=== PATIENT | male | born 1975 | race Caucasian/White ===

== ENCOUNTER 2016-05-10 11:26 | Inpatient (IN) | payer OTHER ==
[2016-05-10 12:02] VITALS: BMI 34.6
--- NOTE | 2016-05-10 12:53 | HP ---
CIWA Score - CIWA Score Nausea/Vomitin-Mild Nausea/No Vomiting Muscle Tremors: 4-Moderate,w/Arms Extend Anxiety: 4-Mod. Anxious/Guarded Agitation: 4-Moderately Restless Paroxysmal Sweats: 3 Orientation: 0-Oriented Tacttile Disturbances: 0-None Auditory Disturbances: 0-None Visual Disturbances: 0-None Headache: 1-Very Mild CIWA-Ar Total Score: 17 Admission ROS BHS - HPI Chief Complaint: I want to be cleaned and stay sober. Allergies/Adverse Reactions: Allergies Allergy/AdvReac Type Severity Reaction Status Date / Time No Known Allergies Allergy Verified 05/10/16 12:45 History of Present Illness: pt is a 40yr old male with a history of alcohol dependence seeking detox for treatment. pt is also prescribed suboxone and has been weaned and no longer wants to take it. pt was advised he will not be getting suboxone and pt in agreement." I dont want it" Exam Limitations: No Limitations - Ebola screening Have you traveled outside of the country in the last 21 days: No Have you had contact with anyone from an Ebola affected area: No Have you been sick,other than usual withdrawal symptoms: No - Review of Systems Constitutional: Diaphoresis, Night Sweats EENT: reports: No Symptoms Reported, Nose Congestion Respiratory: reports: No Symptoms reported Cardiac: reports: No Symptoms Reported GI: reports: Poor Appetite, Poor Fluid Intake : reports: No Symptoms Reported Integumentary: reports: No Symptoms Reported, Dryness, Flushing Neuro: reports: Headache, Tremors Endocrine: reports: Excessive Sweating, Flushing, Intolerance to Cold, Intolerance to Heat Hematology: reports: No Symptoms Reported Psychiatric: reports: Judgement Intact, Mood/Affect Appropiate, Orientated x3, Agitated, Anxious Other Systems: Reviewed and Negative Patient History - Patient Medical History Hx Anemia: No Hx Asthma: No Hx Chronic Obstructive Pulmonary Disease (COPD): No Hx Cancer: No Hx Cardiac Disorders: No Hx Congestive Heart Failure: No Hx Hypertension: Yes (labatolol 200mg bid) Hx Hypercholesterolemia: No Hx Pacemaker: No HX Cerebrovascular Accident: No Hx Seizures: No Hx Dementia: No Hx Diabetes: No Hx Gastrointestinal Disorders: No Hx Liver Disease: No Hx Genitourinary Disorders: No Hx Sexually Transmitted Disorders: No Hx Renal Disease (ESRD): No Hx Thyroid Disease: No Hx Human Immunodeficiency Virus (HIV): No Hx Hepatitis C: No Hx Depression: No Hx Suicide Attempt: No (denies) Hx Bipolar Disorder: No Hx Schizophrenia: No Other Medical History: anxiety - Patient Surgical History Past Surgical History: No - PPD History Previous Implant?: Yes Documented Results: Negative w/o proof Implanted On Prior [facility] Admission?: No PPD to be Administered?: Yes - Reproductive History Patient is a Female of Child Bearing Age (11 -55 yrs old): No - Smoking Cessation Smoking history: Former smoker Have you smoked in the past 12 months: No Hx Chewing Tobacco Use: No Initiated information on smoking cessation: Yes 'Breaking Loose' booklet given: 05/10/16 (on E-cig) - Substance & Tx. History Hx Alcohol Use: Yes Hx Substance Use: Yes Substance Use Type: Alcohol, Tranquilizers Hx Substance Use Treatment: No - Substances Abused Alprazolam (Xanax) Route: Oral Frequency: Daily Amount used: 4MG Age of first use: 34 Date of Last Use: 05/10/16 Alcohol Route: Oral Frequency: Daily Amount used: 5 BOTTLES OF [place] Age of first use: 13 Date of Last Use: 05/10/16 Family Disease History - Family Disease History Family Disease History: Other: Brother () Admission Physical Exam S - Vital Signs Vital Signs: Vital Signs - 24 hr 05/10/16 11:57 Temperature 97.7 F Pulse Rate 85 Respiratory 18 Rate Blood Pressure 119/90 - Physical General Appearance: Yes: Appropriately Dressed, Moderate Distress, Obese, Tremorous, Irritable, Sweating, Anxious HEENTM: Yes: Normal Voice, Nasal Congestion, Rhinorrhea Respiratory: Yes: Lungs Clear, Normal Breath Sounds, No Respiratory Distress Neck: Yes: No masses,lesions,Nodules Breast: Yes: Within Normal Limits Cardiology: Yes: Regular Rhythm, Regular Rate, S1, S2 Abdominal: Yes: Normal Bowel Sounds, Non Tender, Soft Genitourinary: Yes: Within Normal Limits Back: Yes: Normal Inspection Musculoskeletal: Yes: full range of Motion Extremities: Yes: Normal Capillary Refill, Normal Inspection, Non-Tender, Tremors Neurological: Yes: Fully Oriented, Alert, Normal Response Integumentary: Yes: Normal Color, Diaphoresis Lymphatic: Yes: Within Normal Limits - Diagnostic (1) Alcohol dependence with uncomplicated withdrawal Current Visit: Yes Status: Chronic (2) Nicotine dependence Current Visit: Yes Status: Chronic Qualifiers: Nicotine product type: cigarettes (3) Hypertension Current Visit: Yes Status: Chronic Qualifiers: Hypertension type: essential hypertension Qualified Code(s): I10 - Essential (primary) hypertension (4) Electronic cigarette use Current Visit: Yes Status: Chronic Cleared for Admission [facility] - Detox or Rehab [facility] Level of Care: Medically Managed Detox Regimen/Protocol: Librium S Breath Alcohol Content Breath Alcohol Content: 0.093 Urine Drug Screen - Results Drug Screen Negative: No Urine Drug Screen Results: BZO-Benzodiazepines, OXY-Oxycodone
[2016-05-10] MEDS ORDERED: LOPERAMIDE HCL 2 MG CAPSULE PO PRN (13:01)
[2016-05-10] MEDS ORDERED: IBUPROFEN 400 MG TABLET (FP) PO PRN (13:01)
[2016-05-10] MEDS ORDERED: guaiFENesin/D-METHORPHAN HB 10 ML UNIT-DOSE CUPS PO PRN (13:01)
[2016-05-10] MEDS ORDERED: NICOTINE POLACRILEX 4 MG GUM BUC PRN (13:01)
[2016-05-10] MEDS ORDERED: P-EPHED 60MG/TRIPROLIDI 2.5MG TABLET PO PRN (13:01)
[2016-05-10] MEDS ORDERED: chlordiazePOXIDE HCL 25 MG CAPSULE PO PRN (13:01)
[2016-05-10] MEDS ORDERED: MAG HYDROX/AL HYDROX/SIMETH 30 ML UNIT-DOSE CUP PO PRN (13:01)
[2016-05-10] MEDS ORDERED: hydrOXYzine PAMOATE 50 MG CAPSULE (FP) PO PRN (13:01)
[2016-05-10] MEDS ORDERED: MAGNESIUM CITRATE 300 ML BOTTLE PO PRN (13:01)
[2016-05-10] MEDS ORDERED: MAGNESIUM HYDROX 2400MG/30ML ORAL SUSPENSION 30 ML CUP PO PRN (13:01)
[2016-05-10] MEDS ORDERED: MENTHOL/PHENOL 1 EACH UD MM PRN (13:01)
[2016-05-10] MEDS ORDERED: chlordiazePOXIDE HCL 25 MG CAPSULE PO ONE (14:00)
[2016-05-10] MEDS: chlordiazePOXIDE HCL 25 MG CAPSULE PO SCH ×2 (17:15→22:15)
[2016-05-10 20:16] LABS: URINE APPEARANCE CLEAR; URINE BILIRUBIN NEGATIVE (NEGATIVE); URINE BLOOD NEGATIVE (NEGATIVE); URINE COLOR YELLOW; URINE GLUCOSE (UA) NEGATIVE (NEGATIVE); URINE KETONE NEGATIVE (NEGATIVE); URINE LEUK ESTERASE NEGATIVE (NEGATIVE); URINE NITRITE NEGATIVE (NEGATIVE); URINE PROTEIN NEGATIVE (NEGATIVE); URINE UROBILINOGEN NEGATIVE E.U./dl (0.2-1.0)
[2016-05-10] MEDS: THIAMINE HCL 100 MG TABLET (FP) PO SCH (22:14)
[2016-05-10] MEDS: LABETALOL HCL 100 MG TABLET (FP) PO SCH (22:14)
--- NOTE | 2016-05-10 23:33 | EKG ---
Test Reason : Blood Pressure : / mmHG Vent. Rate : 069 BPM Atrial Rate : 069 BPM P-R Int : 186 ms QRS Dur : 086 ms QT Int : 418 ms P-R-T Axes : 035 070 034 degrees QTc Int : 447 ms NORMAL SINUS RHYTHM T WAVE ABNORMALITY, CONSIDER ANTERIOR ISCHEMIA ABNORMAL ECG NO PREVIOUS ECGS AVAILABLE Confirmed by VANDANA BUCKLEY, VERA ([id number]) on 05/10/2016 11:33:23 PM Referred By: Confirmed By:VERA ROSS MD
[2016-05-11] MEDS: chlordiazePOXIDE HCL 25 MG CAPSULE PO SCH ×4 (05:34→22:14)
[2016-05-11] MEDS: ACETAMINOPHEN 325 MG TABLET (FP) PO PRN ×2 (05:35→17:34)
[2016-05-11 10:08] LABS: MCH 34.6 pg (25.7-33.7); MCHC 34.7 g/dl (32.0-35.9); MEAN CELL VOLUME 99.6 fl (80-96); MEAN PLT VOLUME 8.1 fl (7.5-11.1); PLATELET COUNT 153 K/MM3 (134-434); RDW 13.8 % (11.9-15.9); WHITE BLOOD COUNT 5.6 K/mm3 (4.0-10.0)
[2016-05-11] MEDS: LABETALOL HCL 100 MG TABLET (FP) PO SCH ×2 (10:23→22:13)
[2016-05-11] MEDS: PRENATAL VITAMINS W/ FOLIC ACID TABLET (FP) PO SCH (10:23)
[2016-05-11 10:41] LABS: ALK PHOS 80 U/L (45-117); ANION GAP 14 (8-16); BILIRUBIN,TOTAL 0.5 mg/dL (0.2-1.0); CALCIUM 8.8 mg/dL (8.5-10.1); CO2 25 mmol/L (21-32); CREATININE 0.8 mg/dL (0.7-1.3); GLUCOSE,RANDOM 81 mg/dL (74-106); SGOT/AST 60 U/L (15-37); SGPT/ALT 72 U/L (12-78); TOT PROT 7.5 g/dl (6.4-8.2)
--- NOTE | 2016-05-11 11:13 | CONSULT ---
[facility] Psychiatric Consult - Data Date of interview: 05/11/16 Admission source: [facility] Identifying data: First admission to [facility] for this 40 y/o male seeking detox treatment on for alcohol and benzodiazepine (xanax) dependence.Patient is single without children,domiciled,unemployed and reportedly deprived of any source of income. Substance Abuse History: - Smoking Cessation. Smoking history: Former smoker. Have you smoked in the past 12 months: No. Hx Chewing Tobacco Use: No. Initiated information on smoking cessation: Yes. 'Breaking Loose' booklet given : 05/10/16 (on E-cig). - Substance & Tx. History. Hx Alcohol Use: Yes. Hx Substance Use: Yes. Substance Use Type: Alcohol, Tranquilizers. Hx Substance Use Treatment: No. - Substances Abused. Alprazolam (Xanax). Route: Oral. Frequency: Daily. Amount used: 4MG. Age of first use: 34. Date of Last Use: 05/10/16. Alcohol. Route: Oral. Frequency: Daily. Amount used: 5 BOTTLES OF [place]. Age of first use: 13. Date of Last Use: 05/10/16. Patient confirms this pattern of substance use in this interview. Medical History: Hypertension. Psychiatric History: Patient denies. Physical/Sexual Abuse/Trauma History: Patient denies. Additional Comment: Urine Drug Screen Results: BZO-Benzodiazepines, OXY- Oxycodone.Noted. Mental Status Exam - Mental Status Exam Alert and Oriented to: Time, Place, Person Cognitive Function: Good Patient Appearance: Well Groomed Mood: Nervous, Apprehensive, Hopeful Affect: Mood Congruent Patient Behavior: Fatigued, Appropriate, Cooperative Speech Pattern: Clear Voice Loudness: Normal Thought Process: Intact, Goal Oriented Thought Disorder: Not Present Hallucinations: Denies Suicidal Ideation: Denies Homicidal Ideation: Denies Insight/Judgement: Fair Sleep: Well Appetite: Good Muscle strength/Tone: Normal Gait/Station: Normal Psychiatric Findings - Problem List ([place] 1, 2,3) (1) Alcohol dependence with uncomplicated withdrawal Current Visit: Yes Status: Acute (2) Benzodiazepine dependence Current Visit: Yes Status: Acute (3) Electronic cigarette use Current Visit: Yes Status: Chronic (4) Hypertension Current Visit: Yes Status: Chronic Qualifiers: Hypertension type: secondary to other renal disorders Qualified Code (s): I15.1 - Hypertension secondary to other renal disorders; N28.89 - Other specified disorders of kidney and ureter - Initial Treatment Plan Initial Treatment Plan: Psychoeducation.Detoxification.Observation.
[2016-05-11] MEDS ORDERED: ONDANSETRON *ODT* 4 MG TABLET SL PRN (11:25)
--- NOTE | 2016-05-11 17:45 | PN ---
[facility] CIWA - CIWA Score Nausea/Vomitin-Mild Nausea/No Vomiting Muscle Tremors: 4-Moderate,w/Arms Extend Anxiety: 4-Mod. Anxious/Guarded Agitation: 4-Moderately Restless Paroxysmal Sweats: 3 Orientation: 0-Oriented Tacttile Disturbances: 0-None Auditory Disturbances: 0-None Visual Disturbances: 0-None Headache: 0-None Present CIWA-Ar Total Score: 16 BHS Progress Note (SOAP) Subjective: anxiety,tremors,sweating,interrupted sleep,restless Objective: 05/11/16 17:44 Vital Signs - 8 hr 05/11/16 05/11/16 15:22 17:37 Temperature 96 F L 97.8 F Pulse Rate 60 60 Respiratory 18 18 Rate Blood Pressure 108/77 115/76 Laboratory Last Values WBC 5.6 K/mm3 (4.0-10.0) 05/11/16 06:00 RBC 4.26 M/mm3 (4.00-5.60) 05/11/16 06:00 Hgb 14.7 GM/dL (11.7-16.9) 05/11/16 06:00 Hct 42.5 % (35.4-49) 05/11/16 06:00 MCV 99.6 fl (80-96) H 05/11/16 06:00 MCHC 34.7 g/dl (32.0-35.9) 05/11/16 06:00 RDW 13.8 % (11.9-15.9) 05/11/16 06:00 Plt Count 153 K/MM3 (134-434) 05/11/16 06:00 MPV 8.1 fl (7.5-11.1) 05/11/16 06:00 Sodium 140 mmol/L (136-145) 05/11/16 06:00 Potassium 4.0 mmol/L (3.5-5.1) 05/11/16 06:00 Chloride 101 mmol/L (98-107) 05/11/16 06:00 Carbon Dioxide 25 mmol/L (21-32) 05/11/16 06:00 Anion Gap 14 (8-16) 05/11/16 06:00 BUN 7 mg/dL (7-18) 05/11/16 06:00 Creatinine 0.8 mg/dL (0.7-1.3) 05/11/16 06:00 Creat Clearance w eGFR > 60 (>60) 05/11/16 06:00 Random Glucose 81 mg/dL (74-106) 05/11/16 06:00 Calcium 8.8 mg/dL (8.5-10.1) 05/11/16 06:00 Total Bilirubin 0.5 mg/dL (0.2-1.0) 05/11/16 06:00 AST 60 U/L (15-37) H 05/11/16 06:00 ALT 72 U/L (12-78) 05/11/16 06:00 Alkaline Phosphatase 80 U/L (45-117) 05/11/16 06:00 Total Protein 7.5 g/dl (6.4-8.2) 05/11/16 06:00 Albumin 4.0 g/dl (3.4-5.0) 05/11/16 06:00 Urine Color Yellow 05/10/16 15:00 Urine Appearance Clear 05/10/16 15:00 Urine pH 5.0 (5.0-8.0) 05/10/16 15:00 Ur Specific [place] 1.015 (1.001-1.035) 05/10/16 15:00 Urine Protein Negative (NEGATIVE) 05/10/16 15:00 Urine Glucose (UA) Negative (NEGATIVE) 05/10/16 15:00 Urine Ketones Negative (NEGATIVE) 05/10/16 15:00 Urine Blood Negative (NEGATIVE) 05/10/16 15:00 Urine Nitrite Negative (NEGATIVE) 05/10/16 15:00 Urine Bilirubin Negative (NEGATIVE) 05/10/16 15:00 Urine Urobilinogen Negative E.U./dl (0.2-1.0) 05/10/16 15:00 Ur Leukocyte Esterase Negative (NEGATIVE) 05/10/16 15:00 RPR Titer Nonreactive (NONREACTIVE) 05/11/16 06:00 labs noted Assessment: 05/11/16 17:44 withdrawal sx Plan: continue detox
[2016-05-11] MEDS: THIAMINE HCL 100 MG TABLET (FP) PO SCH (22:13)
[2016-05-12] MEDS: diphenhydrAMINE HCL 50 MG CAPSULE PO PRN (01:09)
[2016-05-12] MEDS: chlordiazePOXIDE HCL 25 MG CAPSULE PO SCH ×2 (05:29→10:29)
[2016-05-12] MEDS ORDERED: CYCLOBENZAPRINE HCL 10 MG TABLET (FP) PO ONE (10:17)
--- NOTE | 2016-05-12 10:19 | PN ---
[facility] CIWA - CIWA Score Nausea/Vomitin-No Nausea/No Vomiting Muscle Tremors: 4-Moderate,w/Arms Extend Anxiety: 4-Mod. Anxious/Guarded Agitation: 3 Paroxysmal Sweats: 3 Orientation: 0-Oriented Tacttile Disturbances: 0-None Auditory Disturbances: 0-None Visual Disturbances: 0-None Headache: 0-None Present CIWA-Ar Total Score: 14 S Progress Note (SOAP) Subjective: ANXIETY,TREMORS,SWEATING,INTERRUPTED SLEEP,RESTLESS,MUSCLE ACHES/SPASM Objective: 05/12/16 10:18 Vital Signs - 8 hr 05/12/16 05/12/16 05/12/16 03:30 06:12 09:21 Temperature 96.4 F L 96.8 F L Pulse Rate 61 66 Respiratory 18 16 18 Rate Blood Pressure 111/72 129/86 Laboratory Last Values WBC 5.6 K/mm3 (4.0-10.0) 05/11/16 06:00 RBC 4.26 M/mm3 (4.00-5.60) 05/11/16 06:00 Hgb 14.7 GM/dL (11.7-16.9) 05/11/16 06:00 Hct 42.5 % (35.4-49) 05/11/16 06:00 MCV 99.6 fl (80-96) H 05/11/16 06:00 MCHC 34.7 g/dl (32.0-35.9) 05/11/16 06:00 RDW 13.8 % (11.9-15.9) 05/11/16 06:00 Plt Count 153 K/MM3 (134-434) 05/11/16 06:00 MPV 8.1 fl (7.5-11.1) 05/11/16 06:00 Sodium 140 mmol/L (136-145) 05/11/16 06:00 Potassium 4.0 mmol/L (3.5-5.1) 05/11/16 06:00 Chloride 101 mmol/L (98-107) 05/11/16 06:00 Carbon Dioxide 25 mmol/L (21-32) 05/11/16 06:00 Anion Gap 14 (8-16) 05/11/16 06:00 BUN 7 mg/dL (7-18) 05/11/16 06:00 Creatinine 0.8 mg/dL (0.7-1.3) 05/11/16 06:00 Creat Clearance w eGFR > 60 (>60) 05/11/16 06:00 Random Glucose 81 mg/dL (74-106) 05/11/16 06:00 Calcium 8.8 mg/dL (8.5-10.1) 05/11/16 06:00 Total Bilirubin 0.5 mg/dL (0.2-1.0) 05/11/16 06:00 AST 60 U/L (15-37) H 05/11/16 06:00 ALT 72 U/L (12-78) 05/11/16 06:00 Alkaline Phosphatase 80 U/L (45-117) 05/11/16 06:00 Total Protein 7.5 g/dl (6.4-8.2) 05/11/16 06:00 Albumin 4.0 g/dl (3.4-5.0) 05/11/16 06:00 Urine Color Yellow 05/10/16 15:00 Urine Appearance Clear 05/10/16 15:00 Urine pH 5.0 (5.0-8.0) 05/10/16 15:00 Ur Specific [place] 1.015 (1.001-1.035) 05/10/16 15:00 Urine Protein Negative (NEGATIVE) 05/10/16 15:00 Urine Glucose (UA) Negative (NEGATIVE) 05/10/16 15:00 Urine Ketones Negative (NEGATIVE) 05/10/16 15:00 Urine Blood Negative (NEGATIVE) 05/10/16 15:00 Urine Nitrite Negative (NEGATIVE) 05/10/16 15:00 Urine Bilirubin Negative (NEGATIVE) 05/10/16 15:00 Urine Urobilinogen Negative E.U./dl (0.2-1.0) 05/10/16 15:00 Ur Leukocyte Esterase Negative (NEGATIVE) 05/10/16 15:00 RPR Titer Nonreactive (NONREACTIVE) 05/11/16 06:00 LABS NOTED Assessment: 05/12/16 10:19 WITHDRAWAL SX. Plan: CONTINUE DETOX
[2016-05-12] MEDS: LABETALOL HCL 100 MG TABLET (FP) PO SCH ×2 (10:29→22:46)
[2016-05-12] MEDS: PRENATAL VITAMINS W/ FOLIC ACID TABLET (FP) PO SCH (10:29)
[2016-05-12] MEDS: cloNIDine HCL 0.1 MG TABLET PO SCH ×2 (11:18→22:46)
[2016-05-12] MEDS: CYCLOBENZAPRINE HCL 10 MG TABLET (FP) PO SCH ×2 (13:51→22:46)
[2016-05-12] MEDS: chlordiazePOXIDE 5 MG CAPSULE PO SCH ×2 (17:59→22:45)
[2016-05-12] MEDS: THIAMINE HCL 100 MG TABLET (FP) PO SCH (22:45)
[2016-05-13] MEDS: CYCLOBENZAPRINE HCL 10 MG TABLET (FP) PO SCH ×3 (05:35→22:40)
[2016-05-13] MEDS: chlordiazePOXIDE 5 MG CAPSULE PO SCH ×2 (05:35→10:34)
[2016-05-13] MEDS: LABETALOL HCL 100 MG TABLET (FP) PO SCH ×2 (10:35→22:39)
[2016-05-13] MEDS: cloNIDine HCL 0.1 MG TABLET PO SCH ×2 (10:35→22:40)
--- NOTE | 2016-05-13 11:09 | PN ---
BHS Progress Note (SOAP) Subjective: nausea, sweats, interrupted sleep, anxiety, tremors Objective: 05/13/16 11:08 Vital Signs - 8 hr 05/13/16 05/13/16 03:37 10:00 Temperature 98.4 F Pulse Rate 73 Respiratory 18 18 Rate Blood Pressure 114/82 Laboratory Tests 05/10/16 05/11/16 05/11/16 15:00 06:00 06:00 WBC 5.6 RBC 4.26 Hgb 14.7 Hct 42.5 MCV 99.6 H MCHC 34.7 RDW 13.8 Plt Count 153 MPV 8.1 Sodium 140 Potassium 4.0 Chloride 101 Carbon Dioxide 25 Anion Gap 14 BUN 7 Creatinine 0.8 Creat Clearance w eGFR > 60 Random Glucose 81 Calcium 8.8 Total Bilirubin 0.5 AST 60 H ALT 72 Alkaline Phosphatase 80 Total Protein 7.5 Albumin 4.0 Urine Color Yellow Urine Appearance Clear Urine pH 5.0 Ur Specific [place] 1.015 Urine Protein Negative Urine Glucose (UA) Negative Urine Ketones Negative Urine Blood Negative Urine Nitrite Negative Urine Bilirubin Negative Urine Urobilinogen Negative Ur Leukocyte Esterase Negative RPR Titer 05/11/16 06:00 WBC RBC Hgb Hct MCV MCHC RDW Plt Count MPV Sodium Potassium Chloride Carbon Dioxide Anion Gap BUN Creatinine Creat Clearance w eGFR Random Glucose Calcium Total Bilirubin AST ALT Alkaline Phosphatase Total Protein Albumin Urine Color Urine Appearance Urine pH Ur Specific [place] Urine Protein Urine Glucose (UA) Urine Ketones Urine Blood Urine Nitrite Urine Bilirubin Urine Urobilinogen Ur Leukocyte Esterase RPR Titer Nonreactive Assessment: 05/13/16 11:08 withdrawal sx Plan: cont detox, fluids, encourage ambulation
[2016-05-13] MEDS: PRENATAL VITAMINS W/ FOLIC ACID TABLET (FP) PO SCH (11:40)
[2016-05-13] MEDS: chlordiazePOXIDE HCL 10 MG CAPSULE PO SCH ×2 (17:18→22:39)
[2016-05-13] MEDS: THIAMINE HCL 100 MG TABLET (FP) PO SCH (22:39)
[2016-05-13] MEDS: diphenhydrAMINE HCL 50 MG CAPSULE PO PRN (22:41)
[2016-05-14] MEDS: CYCLOBENZAPRINE HCL 10 MG TABLET (FP) PO SCH (05:30)
[2016-05-14] MEDS: chlordiazePOXIDE HCL 10 MG CAPSULE PO SCH (05:30)
[2016-05-14 06:38] VITALS: BP 108/75; PULSE 88; TEMP 95.8
--- NOTE | 2016-05-14 08:27 | PN ---
BHS Progress Note (SOAP) Subjective: no complaints Objective: 05/14/16 08:25 Vital Signs - 8 hr 05/14/16 05/14/16 05/14/16 00:30 03:30 06:37 Temperature 95.8 F L Pulse Rate 88 Respiratory 18 18 18 Rate Blood Pressure 108/75 Laboratory Tests 05/10/16 05/11/16 05/11/16 15:00 06:00 06:00 WBC 5.6 RBC 4.26 Hgb 14.7 Hct 42.5 MCV 99.6 H MCHC 34.7 RDW 13.8 Plt Count 153 MPV 8.1 Sodium 140 Potassium 4.0 Chloride 101 Carbon Dioxide 25 Anion Gap 14 BUN 7 Creatinine 0.8 Creat Clearance w eGFR > 60 Random Glucose 81 Calcium 8.8 Total Bilirubin 0.5 AST 60 H ALT 72 Alkaline Phosphatase 80 Total Protein 7.5 Albumin 4.0 Urine Color Yellow Urine Appearance Clear Urine pH 5.0 Ur Specific [place] 1.015 Urine Protein Negative Urine Glucose (UA) Negative Urine Ketones Negative Urine Blood Negative Urine Nitrite Negative Urine Bilirubin Negative Urine Urobilinogen Negative Ur Leukocyte Esterase Negative RPR Titer 05/11/16 06:00 WBC RBC Hgb Hct MCV MCHC RDW Plt Count MPV Sodium Potassium Chloride Carbon Dioxide Anion Gap BUN Creatinine Creat Clearance w eGFR Random Glucose Calcium Total Bilirubin AST ALT Alkaline Phosphatase Total Protein Albumin Urine Color Urine Appearance Urine pH Ur Specific [place] Urine Protein Urine Glucose (UA) Urine Ketones Urine Blood Urine Nitrite Urine Bilirubin Urine Urobilinogen Ur Leukocyte Esterase RPR Titer Nonreactive Assessment: 05/14/16 08:26 completed deteox, medically stable Plan: d/c today, f/u PCP for medical care
--- NOTE | 2016-05-14 08:32 | DS ---
[facility] Detox Discharge Summary Admission Date: 05/10/16 Discharge Date: 05/14/16 - History Present History: Alcohol Dependence, Sedative Dependence Pertinent Past History: nicotine dependence with withdrawal, anxiety, depression and insomnia, HTN - Physical Exam Results Vital Signs: Vital Signs Temperature 95.8 F L 05/14/16 06:37 Pulse Rate 88 05/14/16 06:37 Respiratory Rate 18 05/14/16 06:37 Blood Pressure 108/75 05/14/16 06:37 O2 Sat by Pulse Oximetry (%) Pertinent Admission Physical Exam Findings: withdrawal sx - Treatment Hospital Course: Detox Protocol Followed, Detoxed Safely, Responded well, Discharged Condition Good, Rehab Referral Accepted - Medication Discharge Medications: Ambulatory Orders Labetalol HCl [Normodyne -] 200 mg PO BID 05/10/16 - Diagnosis (1) Alcohol dependence with uncomplicated withdrawal Current Visit: Yes Status: Acute (2) Benzodiazepine dependence Current Visit: Yes Status: Acute (3) Electronic cigarette use Current Visit: Yes Status: Chronic (4) Hypertension Current Visit: Yes Status: Chronic Qualifiers: Hypertension type: secondary to other renal disorders Qualified Code (s): I15.1 - Hypertension secondary to other renal disorders; N28.89 - Other specified disorders of kidney and ureter (5) Nicotine dependence Current Visit: Yes Status: Chronic Qualifiers: Nicotine product type: cigarettes - AMA Did Patient Leave Against Medical Advice: No
== END 2016-05-14 08:55 | disposition home or self-care (01) | DRG 775 ==
LOC: YASAS 11:26 → Y3N 13:44
PROVIDERS: ADMIT Internal Medicine; ATTEND Internal Medicine
PROC: HZ2ZZZZ Detoxification Services for Substance Abuse Treatment (ICD-10-PCS; principal; 2016-05-14)
DX: F13.20 Sedative, hypnotic or anxiolytic dependence, uncomplicated (principal); F10.230 Alcohol dependence with withdrawal, uncomplicated; F17.210 Nicotine dependence, cigarettes, uncomplicated; I10 Essential (primary) hypertension; Z77.29 Contact with and (suspected) exposure to other hazardous substances
CPT/HCPCS: 36415; 80053; 81003; 85027; 86593; 93005; 93010

== ENCOUNTER 2016-07-02 11:41 | Emergency (ER) | payer OTHER ==
[2016-07-02 11:52] VITALS: BP 133/91; PULSE 92; TEMP 97.7; BMI 30.7
[2016-07-02] MEDS ORDERED: SODIUM CHLORIDE 1,000 ML IV ONE (11:59)
[2016-07-02] MEDS ORDERED: ONDANSETRON 4 MG/2 ML VIAL IVPB ONE (11:59)
[2016-07-02] MEDS ORDERED: ONDANSETRON 4 MG/2 ML VIAL ONE (12:05)
[2016-07-02] MEDS ORDERED: METOCLOPRAMIDE HCL 10 MG TABLET (FP) PO ONE ×2 (12:12→12:13)
--- NOTE | 2016-07-02 12:16 | PDOC ---
History of Present Illness - General History Source: Patient Exam Limitations: No Limitations <Serafin Mittal - Last Filed: 07/02/16 12:20> - General History Source: Patient Exam Limitations: No Limitations - History of Present Illness Initial Comments: 07/02/16 14:08 The patient is a 41 year old male with a significant past medical history of HTN, alcohol dependence, benzodiazepine dependence, and nicotine dependence, who presents to the ED intermittent but persisteent for appox 1 month, associated with nausea and 3 episodes of vomiting last night. Patient states he had a couple drinks last night before vomiting 3x. Patient states there were was some streaking of blood in the 3rd episode of vomiting, and food contents in prior episodes. He states that he has been experiencing headache but sometimes improves but then returns ever since he has come out of rehab a few months ago. The pt denies any vision changes, numbness/tingling/weakness, rinary/bowel incontinence , fever/chills. 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 Patient denies chest pain, SOB, abdominal pain, diarrhea, bpr, melena, constipation. pt also notes he is in current process of titrating off of his suboxone. <Malia Lafleurit - Last Filed: 07/02/16 14:09> - General Chief Complaint: Nausea/Vomiting Stated Complaint: VOMITING Time Seen by Provider: 07/02/16 11:58 Past History - Past Medical History Anemia: No Asthma: No Cancer: No Cardiac Disorders: No CVA: No COPD: No CHF: No Dementia: No Diabetes: No GI Disorders: No Disorders: No HTN: Yes Hypercholesterolemia: No Kidney Stones: No Liver Disease: No Suicide Attempt (Hx): No (denies) Seizures: No Thyroid Disease: No - Reproductive History Testicular Surgery: No - Psycho/Social/Smoking Cessation Hx Anxiety: No Suicidal Ideation: No Smoking History: Current some day smoker Have you smoked in the past 12 months: No Number of Cigarettes Smoked Daily: 0 If you are a former smoker, when did you quit?: Pt uses e cigarette. Information on smoking cessation initiated: No 'Breaking Loose' booklet given: 05/10/16 (on E-cig) Hx Alcohol Use: Yes (SOCIAL) Drug/Substance Use Hx: No Substance Use Type: None Hx Substance Use Treatment: No <Serafin Mittal - Last Filed: 07/02/16 12:20> <Alejandro Lafleur - Last Filed: 07/02/16 14:09> - Past Medical History Allergies/Adverse Reactions: Allergies Allergy/AdvReac Type Severity Reaction Status Date / Time No Known Allergies Allergy Verified 07/02/16 11:48 Home Medications: Ambulatory Orders Labetalol HCl [Normodyne -] 200 mg PO BID 05/10/16 Review of Systems - Review of Systems Able to Perform ROS?: Yes Comments:: 07/02/16 14:09 CONSTITUTIONAL: No reported: Fever, Chills, Diaphoresis, Generalized Weakness, Malaise, Loss of Appetite HEENT: No reported: Rhinorrhea, Nasal Congestion, Throat Pain, Throat Swelling, Difficulty Swallowing, Mouth Swelling, Ear Pain, Eye Pain, Visual Changes CARDIOVASCULAR: No reported: Chest Pain, Syncope, Palpitations, Irregular Heart Rate, Lightheadedness, Peripheral Edema RESPIRATORY: No reported: Cough, Shortness of Breath, SOB with Exertion, Orthopnea, Wheezing , Stridor, Hemoptysis GASTROINTESTINAL: + nausea, vomiting w/ blood tingue. No reported: Abdominal pain, Abdominal Distension, Diarrhea, Constipation, Melena, Hematochezia GENITOURINARY: No reported: Dysuria, Frequency, Urgency, Hesitancy, Flank Pain, Genital Pain MUSCULOSKELETAL: No reported: Myalgia, Arthralgia, Joint Swelling, Back pain, Neck Pain SKIN: No reported: Rash, Itching, Pallor HEMEATOLOGIC/IMMUNOLOGIC: No reported: Easy Bleeding, Easy Bruising, Lymphadenopathy, Frequent infections ENDOCRINE: No reported: Unexplained Weight Gain, Unexplained Weight Loss, Heat Intolerance , Cold Intolerance NEUROLOGIC: + persistent headaches. No reported: Focal Weakness, Paresthesias, Vertigo, Lightheadedness, Unsteady Gait, Seizure, Mental Status Changes, Incontinence PSYCHIATRIC: No reported: Anxiety, Depression <Alejandro Lafleur - Last Filed: 07/02/16 14:09> *Physical Exam - Vital Signs Last Vital Signs Temp Pulse Resp BP Pulse Ox 97.7 F 92 H 20 133/91 96 07/02/16 11:45 07/02/16 11:45 07/02/16 11:45 07/02/16 11:45 07/02/16 11:45 <Serafin Mittal - Last Filed: 07/02/16 12:20> - Vital Signs Last Vital Signs Temp Pulse Resp BP Pulse Ox 97.7 F 92 H 20 133/91 96 07/02/16 11:45 07/02/16 11:45 07/02/16 11:45 07/02/16 11:45 07/02/16 11:45 - Physical Exam Comments: 07/02/16 14:09 GENERAL: The patient is awake, alert, and fully oriented, Nontoxic - in no acute distress. HEAD: Normocephalic, atraumatic. EYES: extraocular movements intact, sclera anicteric, conjunctiva clear. Pupils 4mm and reactive to light symmetrically. ENT: Normal voice, Moist mucous membranes. NECK: Normal range of motion, supple LUNGS: Breath sounds equal, clear to auscultation bilaterally. No wheezes, no rhonchi, no rales. HEART: Regular rate and rhythm, normal S1 and S2 without murmur, rub or gallop. ABDOMEN: Soft, nontender, normoactive bowel sounds. No guarding, no rebound. . No CVA tenderness EXTREMITIES: Normal range of motion, no edema. No clubbing or cyanosis. No cords, erythema, or tenderness. NEUROLOGICAL: No facial assymetry, Normal speech, normal gait, moving all 4 extremities spontaneously and symmetrically PSYCH: Normal mood, normal affect. SKIN: Warm, Dry, normal turgor, <Alejandro Lafleur - Last Filed: 07/02/16 14:09> Medical Decision Making - Medical Decision Making 07/02/16 12:20 41y M hx of substance abuse presents with with headache and vomiting. The pt states that since going through rehab, has had a persistent headache and yesterday he vomited. The pt denies any focal neurologic deficits including vision changes, numbness/tingling/weakness. no trauma. 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 i discussed the risks of leaving including missed and delayed diagnosis of things like brain masses, bleeds. the pt states he understands but really needs to pick her up and there is no one else who can help since they are all at work. i will give pt a reglan and will AMA the pt with strict instructions to return for further workup once he has arranged his personal matters Patient is alert and oriented, and expressed that they would like to leave AGAINST MEDICAL ADVICE. I discussed with them the risks of leaving include , delayed/missed diganosis of intracranial pathology such as bleeds/masses. 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 I believe that the patient understands our discussion and is capable of making an informed decision about leaving against medical advice. I also discussed with the patient that they may return at any time to complete their workup. A portion of this note was documented by scribe services under my direction. I have reviewed the details of the note, within reason, and agree with the documentation with the following case summary and management plan written by me <Serafin Mittal - Last Filed: 07/02/16 12:20> *DC/Admit/Observation/Transfer - Discharge Dispostion Admit: No <Serafin Mittal - Last Filed: 07/02/16 12:20> - Attestations Scribe Attestion: 07/02/16 14:09 Documentation prepared by Alejandro Lafleur, acting as biomedical manager for Serafin Mittal MD, . <Alejandro Lafleur - Last Filed: 07/02/16 14:09> Diagnosis at time of Disposition: Headache Qualifiers: Headache type: unspecified Headache chronicity pattern: chronic headache Intractability: not intractable Qualified Code(s): R51 - Headache - Discharge Dispostion Disposition: AGAINST MEDICAL ADVICE - Referrals Referrals: [facility] [Provider Group] Kiel Alston MD [Staff Physician] - - Patient Instructions Printed Discharge Instructions: DI for Headache Additional Instructions: You are leaving against medical advice. We have not done any workup to further diagnose your headache du to your time constraints. Please return at any time once you have taken care of your matters for us to evaluate your headache. Return to the emergency department immediately with ANY new, persistent or worsening symptoms. Print Language: SLOVAK
== END 2016-07-02 12:22 | disposition left against medical advice (07) ==
LOC: JER 11:41
DX: R51 Headache (principal); I10 Essential (primary) hypertension; F10.20 Alcohol dependence, uncomplicated; F13.20 Sedative, hypnotic or anxiolytic dependence, uncomplicated; F17.210 Nicotine dependence, cigarettes, uncomplicated
CPT/HCPCS: 99282-25

== ENCOUNTER 2018-08-29 07:48 | Emergency (ER) | payer BC, OTHER ==
[2018-08-29 07:53] VITALS: BP 155/88; PULSE 86; TEMP 98.2; BMI 29.2
[2018-08-29] MEDS ORDERED: ASPIRIN 81 MG CHEWABLE TABLETS PO ONE (08:49)
--- NOTE | 2018-08-29 08:49 | PDOC ---
History of Present Illness - General Chief Complaint: Chest Pain Stated Complaint: CHEST PAIN Time Seen by Provider: 08/29/18 08:06 History Source: Patient Exam Limitations: Clinical Condition - History of Present Illness Initial Comments: 08/29/18 09:12 Patient with h/o HTN on labetalol TID and multiple drug use on rehab using suboxine present with complains of sharp mid-sternum chest pains started 3hrs ago when at home which comes and goes. Patient report feeling very anxious now. Patient report pain localized to mid chest area. Denies N/V, SOB, sweats, dizziness, DAI, light headedness. Denies any other symptoms Timing/Duration: 1-3 hours Past History - Past Medical History Allergies/Adverse Reactions: Allergies Allergy/AdvReac Type Severity Reaction Status Date / Time No Known Allergies Allergy Verified 08/29/18 07:50 Home Medications: Ambulatory Orders Labetalol HCl [Normodyne -] 200 mg PO BID 05/10/16 Anemia: No Asthma: No Cancer: No Cardiac Disorders: No CVA: No COPD: No CHF: No Dementia: No Diabetes: No GI Disorders: No Disorders: No HTN: Yes Hypercholesterolemia: No Kidney Stones: No Liver Disease: No Seizures: No Thyroid Disease: No - Reproductive History Testicular Surgery: No - Immunization History Immunization Up to Date: Yes - Suicide/Smoking/Psychosocial Hx Smoking History: Never smoked Have you smoked in the past 12 months: No Number of Cigarettes Smoked Daily: 0 If you are a former smoker, when did you quit?: Pt uses e cigarette. Information on smoking cessation initiated: No 'Breaking Loose' booklet given: 05/10/16 (on E-cig) Hx Alcohol Use: No Drug/Substance Use Hx: No Substance Use Type: Alcohol, Tranquilizers Hx Substance Use Treatment: No Review of Systems - Review of Systems Able to Perform ROS?: Yes Is the patient limited British proficient: No Constitutional: No: Weakness HEENTM: No: Blurred Vision, Recent change in vision Respiratory: No: Symptoms reported, See HPI, Cough, Orthopnea, Shortness of Breath, SOB with Exertion, SOB at Rest, Stridor, Wheezing, Productive cough, Hemoptysis, Other Cardiac (ROS): Yes: Symptoms Reported, See HPI, Chest Pain (mid-sternum), Palpitations. No: Edema, Irregular Heart Rate, Lightheadedness, Syncope, Chest Tightness, Other ABD/GI: No: Nausea, Vomiting Neurological: No: Headache, Dizziness All Other Systems: Reviewed and Negative *Physical Exam - Vital Signs Last Vital Signs Temp Pulse Resp BP Pulse Ox 98.2 F 86 16 155/88 96 08/29/18 07:50 08/29/18 07:50 08/29/18 07:50 08/29/18 07:50 08/29/18 07:50 - Physical Exam Comments: 08/29/18 09:17 GENERAL: Well developed, well nourished. Awake and alert. No acute distress. HEENT: Normocephalic, atraumatic. PERRLA, EOMI. No conjunctival pallor. Sclera are non-icteric. Moist mucous membranes. Oropharynx is clear. NECK: Supple. Full ROM. CARDIOVASCULAR: Regular rate and rhythm. No murmurs, rubs, or gallops. Distal pulses are 2+ and symmetric. PULMONARY: No evidence of respiratory distress. Lungs clear to auscultation bilaterally. No wheezing, rales or rhonchi. ABDOMINAL: Soft. Non-tender. Non-distended. No rebound or guarding. No organomegaly. Normoactive bowel sounds. MUSCULOSKELETAL Normal range of motion at all joints. EXTREMITIES: No cyanosis. No clubbing. No edema. SKIN: Warm and dry. Normal capillary refill. NEUROLOGICAL: Alert, awake, appropriate. Gait is normal without ataxia. PSYCHIATRIC: Cooperative. Good eye contact. Appropriate mood General Appearance: Yes: Nourished, Appropriately Dressed. No: Apparent Distress ED Treatment Course - LABORATORY CBC & Chemistry Diagram: 08/29/18 08:51 08/29/18 08:51 - RADIOLOGY Radiology Studies Ordered: Category Date Time Status CHEST PA & LAT [RAD] Stat Radiology 08/29/18 08:47 Ordered Medical Decision Making - Medical Decision Making 08/29/18 09:16 Patient with h/o HTN on labetalol TID and multiple drug use on rehab using suboxine present with complains of sharp mid-sternum chest pains started 3hrs ago when at home which comes and goes. Patient report feeling very anxious now. Patient report pain localized to mid chest area. Denies N/V, SOB, sweats, dizziness, DAI, light headedness. Denies any other symptoms Clinical exam unremarkable with normal cardio exam. Lungs clear to auscultation bilateral. Patient no acute distress. EKG shows normal sinus rhythm. CBC, CMP and cardiac profile lab ordered. Checks x-ray ordered to rule out acute pathology. Aspirin 162 mg by mouth given. Reassess after lab and imaging 08/29/18 11:24 CBC, CMP cardiac profile wnl. CXR unremarkble. Given Patient family h/o brother with WI at 33yo. echo ordered. Patient asymptomatic now 08/29/18 14:07 repeat trop negative. Echo is negative. Patient asymptomatic and stable for discharge with cardiology follow-up *DC/Admit/Observation/Transfer Diagnosis at time of Disposition: Chest pain Qualifiers: Chest pain type: unspecified Qualified Code(s): R07.9 - Chest pain, unspecified - Discharge Dispostion Disposition: HOME Condition at time of disposition: Stable Decision to Admit order: No - Referrals Referrals: Yosvany Wells MD [Staff Physician] - - Patient Instructions Printed Discharge Instructions: DI for Atypical Chest Pain Additional Instructions: Your EKG, labs ad Echo was normal. Follow-up with referred corporate safety coordinator as discussed. - Post Discharge Activity
[2018-08-29] MEDS ORDERED: ASPIRIN 81 MG CHEWABLE TABLETS ONE (08:57)
--- NOTE | 2018-08-29 08:58 | PDOC ---
*Physical Exam - Vital Signs Last Vital Signs Temp Pulse Resp BP Pulse Ox 98.2 F 86 16 155/88 96 08/29/18 07:50 08/29/18 07:50 08/29/18 07:50 08/29/18 07:50 08/29/18 07:50 - Physical Exam Comments: 08/29/18 08:57 The patient was examined by [MORENITA Ferrer] under my direct supervision. I personally evaluated the patient. I concur with the above findings and the plan of care.
[2018-08-29 09:08] LABS: BASO % 0.9 % (0-2.0); EOS % 2.6 % (0-4.5); HEMATOCRIT 40.7 % (35.4-49); HEMOGLOBIN 13.9 GM/dL (11.7-16.9); LYMPH % 34.7 % (8-40); MCH 31.3 pg (25.7-33.7); MCHC 34.2 g/dl (32.0-35.9); MEAN CELL VOLUME 91.3 fl (80-96); MEAN PLT VOLUME 7.2 fl (7.5-11.1); MONO % 9.4 % (3.8-10.2); NEUT % 52.4 % (42.8-82.8); PLATELET COUNT 160 K/MM3 (134-434); RBC 4.45 M/mm3 (4.00-5.60); RDW 13.2 % (11.9-15.9); WHITE BLOOD COUNT 3.3 K/mm3 (4.0-10.0)
[2018-08-29 09:41] LABS: ALBUMIN 3.6 g/dl (3.4-5.0); ALK PHOS 66 U/L (45-117); ANION GAP 6 MMOL/L (8-16); BILIRUBIN,TOTAL 0.4 mg/dL (0.2-1); BLOOD UREA NITROGEN 11 mg/dL (7-18); CALCIUM 8.7 mg/dL (8.5-10.1); CHLORIDE 110 mmol/L (98-107); CO2 25 mmol/L (21-32); CREATININE 0.7 mg/dL (0.55-1.3); GLUCOSE,RANDOM 105 mg/dL (74-106); POTASSIUM 3.9 mmol/L (3.5-5.1); SGOT/AST 45 U/L (15-37); SGPT/ALT 63 U/L (13-61); SODIUM 142 mmol/L (136-145); TOT PROT 7.1 g/dl (6.4-8.2)
--- NOTE | 2018-08-29 13:00 | EKG ---
Test Reason : Blood Pressure : / mmHG Vent. Rate : 082 BPM Atrial Rate : 082 BPM P-R Int : 176 ms QRS Dur : 092 ms QT Int : 376 ms P-R-T Axes : 050 061 045 degrees QTc Int : 439 ms NORMAL SINUS RHYTHM NORMAL ECG WHEN COMPARED WITH ECG OF 10-MAY-2016 14:44, NON-SPECIFIC CHANGE IN ST SEGMENT IN ANTERIOR LEADS T WAVE INVERSION NO LONGER EVIDENT IN ANTERIOR LEADS Confirmed by MYNOR BUCKLEY, HEYDI ([id number]) on 08/29/2018 12:59:47 PM Referred By: Confirmed By:HEYDI LOWE MD
--- NOTE | 2018-08-29 13:34 | ECHO ---
Name: RAVI LYNN Exam:Adult Echocardiogram Study Date: 08/29/2018 11:29 AM Age: 43 yrs Reason For Study: Chest pain Height: 64 in Weight: 170 lb BSA: 1.8 m2 MMode/2D Measurements & Calculations IVSd: 0.61 cm Ao root diam: 3.3 cm LVIDd: 5.2 cm LA dimension: 3.2 cm LVIDs: 3.4 cm LVPWd: 0.77 cm EDV(Teich): 129.3 ml LVOT diam: 2.2 cm ESV(Teich): 47.1 ml TAPSE: 2.0 cm RV S Yovani: 16.0 cm/sec Doppler Measurements & Calculations MV E max yovani: 90.5 cm/sec Ao V2 max: 159.0 cm/sec MV A max yovani: 66.9 cm/sec Ao max P.1 mmHg MV E/A: 1.4 Ao V2 mean: 113.3 cm/sec MV dec time: 0.17 sec Ao mean P.5 mmHg Ao V2 VTI: 35.5 cm NORRIS(I,D): 2.8 cm2 NORRIS(V,D): 2.9 cm2 LV V1 max P.9 mmHg SV(LVOT): 101.1 ml LV V1 mean P.2 mmHg LV V1 max: 121.3 cm/sec LV V1 mean: 83.8 cm/sec LV V1 VTI: 26.9 cm Med Peak E' Yovani: 9.7 cm/sec Med E/e': 9.3 Lat Peak E' Yovani: 11.4 cm/sec Lat E/e': 7.9 Procedure A two-dimensional transthoracic echocardiogram with color flow and Doppler was performed. Left Ventricle The left ventricular size, thickness and function are normal. The left ventricular ejection fraction is normal. Left Ventricular Filling pattern is normal for age. The left ventricular wall motion is tamia l. Right Ventricle The right ventricle is normal in size and function. Atria Normal left and right atrial size and function. Mitral Valve The mitral valve is normal in structure and function. There is no mitral valve stenosis. There is tra ce to mild mitral regurgitation. Tricuspid Valve There is trivial tricuspid valve thickening. There is no tricuspid stenosis. There is Trace to mild t ricuspid regurgitation. Right ventricular systolic pressure is normal. Aortic Valve The aortic valve is not well visualized. No hemodynamically significant valvular aortic stenosis. No aortic regurgitation is present. Pulmonic Valve The pulmonic valve is not well visualized. Great Vessels The aortic root is normal size. Pericardium/Pleura There is no pericardial effusion. Interpretation Summary The left ventricular size, thickness and function are normal The left ventricular ejection fraction is normal. Left Ventricular Filling pattern is normal for age. The left ventricular wall motion is normal. There is trace to mild mitral regurgitation. There is Trace to mild tricuspid regurgitation. Right ventricular systolic pressure is normal. MD Yosvany Wells 08/29/2018 01:33 PM
== END 2018-08-29 14:16 | disposition home or self-care (01) ==
LOC: JER 07:48
DX: R07.9 Chest pain, unspecified (principal); I10 Essential (primary) hypertension; F17.290 Nicotine dependence, other tobacco product, uncomplicated
CPT/HCPCS: 36415; 71046-TC-FY; 80053; 82550; 84484; 85025; 93005; 93010; 93306-TC; 99282-25

== ENCOUNTER 2019-12-11 15:00 | Inpatient (IN) | payer BC ==
--- NOTE | 2019-12-11 15:28 | PDOC ---
History of Present Illness - General Chief Complaint: Seizure Stated Complaint: SEIZURES Time Seen by Provider: 12/11/19 15:23 - History of Present Illness Initial Comments: 12/11/19 15:28 HPI: 44 y/o M with hx of HTN and opiate/BZD abuse (last used 5years ago currently on suboxone) presenting with new onset seizures. 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 He then doesnt recall the ensuing seizure and woke up in the ambulance. Reports some pain at the left frontal hematoma. No DAI, LH, chest pain, SOB, palp, abd pain, n/v. Reports never had seizures before but consumes significant amounts of alcohol daily, 10+ heavy beers. Recently started work again this week and he normally drinks during the day which he hasnt been doing today. PMHx: as noted above ROS: as noted SHx: + tobacco use; +significant alcohol use; no rec drugs Allergies: NKDA ROS: GENERAL/CONSTITUTIONAL: No fever or chills. No weakness. HEAD, EYES, EARS, NOSE AND THROAT: No change in vision. No ear pain or discharge. No sore throat. CARDIOVASCULAR: No chest pain or shortness of breath RESPIRATORY: No cough, wheezing, or hemoptysis. GASTROINTESTINAL: No nausea, vomiting, diarrhea or constipation. GENITOURINARY: No dysuria, frequency, or change in urination. MUSCULOSKELETAL: No joint or muscle swelling or pain. No neck or back pain. SKIN: +abrasion NEUROLOGIC: No headache, vertigo, loss of consciousness, or change in strength/sensation. ENDOCRINE: No increased thirst. No abnormal weight change HEMATOLOGIC/LYMPHATIC: No anemia, easy bleeding, or history of blood clots. ALLERGIC/IMMUNOLOGIC: No hives or skin allergy. PE: GENERAL: Awake, alert, and fully oriented, no acute distress HEAD: +left frontal 8cm hematoma with overlying abrasion but no lac EYES: EOMI, sclera anicteric, conjunctiva clear ENT: Auricles normal inspection, hearing grossly normal, nares patent, oropharynx clear without exudates. dry mucosa and tongue fasiculations NECK: Normal ROM, no lymphadenopathy LUNGS: No increased work of breathing, symmetrical chest rise, clear to auscultation bilaterally, no wheezes, crackles or rhonchi HEART: Regular rate, regular rhythm, normal S1 and S2, no murmur, peripheral pulses 2+ and equal bilaterally. ABDOMEN: Soft, nondistended, nontender. No guarding, no rebound. No masses. No CVAT MUSCULOSKELETAL: FROM, all extremities tremulous NEUROLOGICAL: Cranial nerves II through XII grossly intact. Normal speech, stable gait, no focal sensorimotor deficits SKIN: Warm, Dry, normal turgor, no rashes or lesions noted Past History - Medical History Allergies/Adverse Reactions: Allergies Allergy/AdvReac Type Severity Reaction Status Date / Time No Known Allergies Allergy Verified 12/11/19 15:22 Home Medications: Ambulatory Orders Labetalol HCl [Normodyne -] 200 mg PO BID 05/10/16 Buprenorphine HCl/Naloxone HCl [Buprenorp-Nalox 8-2 mg Sl Film] 1 each SL BID 12/11/19 Anemia: No Asthma: No Cancer: No Cardiac Disorders: No CVA: No COPD: No CHF: No Dementia: No Diabetes: No GI Disorders: No Disorders: No HTN: Yes Hypercholesterolemia: No Kidney Stones: No Liver Disease: No Seizures: No Thyroid Disease: No - Reproductive History Testicular Surgery: No - Immunization History Immunization Up to Date: Yes - Psycho-Social/Smoking History Smoking History: Current every day smoker Have you smoked in the past 12 months: Yes Number of Cigarettes Smoked Daily: 0 If you are a former smoker, when did you quit?: Pt uses e cigarette. Information on smoking cessation initiated: Yes 'Breaking Loose' booklet given: 05/10/16 (on E-cig) - Substance Abuse Hx (Audit-C & DAST Scrn) How often the patient has a drink containing alcohol: 4 0r more times/wk Number of drinks the patient has on a typical day: 5 or 6 How often the patient has six or more drinks on one occasion: Daily or almost daily Score: In Men: 4 or > Positive; In Women: 3 or > Positive: 10 Screen Result (Pos requires Nsg. Audit-10AR): Positive In the last yr the pt used illegal drug/Rx for NonMed reason: No Score: Yes response is considered Positive: 0 Screen Result (Positive result requires Nsg. DAST-10): Negative *Physical Exam - Vital Signs Last Vital Signs Temp Pulse Resp BP Pulse Ox 97.2 F L 74 22 H 114/76 98 12/11/19 15:22 12/11/19 15:22 12/11/19 15:22 12/11/19 15:22 12/11/19 15:22 ED Treatment Course - LABORATORY CBC & Chemistry Diagram: 12/11/19 16:05 Medical Decision Making - Medical Decision Making 12/11/19 18:01 44 y/o M with hx of HTN and opiate/BZD abuse (last used 5years ago currently on suboxone) presenting with new onset seizures, reporting significant alcohol use. VSS, AF. PE with tongue fasciulations and extremity tremors -cbc, cmp, coags, alcohol, UDS, ua, ekg, CT head, lactate -ivf, banana bag, thiamine, [id number] iv -reassess -Dr Silverman requesting admission and UDS 12/11/19 18:02 ct head negative po tylenol for DAI 50mg librium admitted for new onset seizures likely 2/2 to alcohol withdrawals Discharge - Discharge Information Problems reviewed: Yes Clinical Impression/Diagnosis: Seizure Alcohol withdrawal Qualifiers: Complication of substance-induced condition: with unspecified complication Qualified Code(s): F10.239 - Alcohol dependence with withdrawal, unspecified Condition: Guarded - Admission Yes - Follow up/Referral - Patient Discharge Instructions - Post Discharge Activity
[2019-12-11] MEDS ORDERED: SODIUM CHLORIDE 1,000 ML IV STA (15:43)
[2019-12-11] MEDS ORDERED: diazePAM CARPU-JECT 10 MG/2 ML DISP.SYRIN IVPUSH ONE (16:20)
[2019-12-11] MEDS ORDERED: FOLIC ACID INJECTION - 1 MG, THIAMINE HCL 100 MG, MULTIVIT INJECTION ADULT 10 ML in SOD... IVPB ONE (16:20)
[2019-12-11] MEDS ORDERED: THIAMINE HCL 200 MG/2 ML VIAL IVPB ONE (16:21)
[2019-12-11 16:29] LABS: BASO % 0.2 % (0-2.0); EOS % 1.2 % (0-4.5); HEMATOCRIT 41.2 % (35.4-49); HEMOGLOBIN 13.9 GM/dL (11.7-16.9); LYMPH % 9.5 % (8-40); MCH 31.8 pg (25.7-33.7); MCHC 33.7 g/dl (32.0-35.9); MEAN CELL VOLUME 94.6 fl (80-96); MEAN PLT VOLUME 7.4 fl (7.5-11.1); MONO % 4.3 % (3.8-10.2); NEUT % 84.8 % (42.8-82.8); PLATELET COUNT 120 K/MM3 (134-434); RBC 4.36 M/mm3 (4.00-5.60); RDW 13.4 % (11.9-15.9); WHITE BLOOD COUNT 4.6 K/mm3 (4.0-10.0)
[2019-12-11] MEDS ORDERED: diazePAM CARPU-JECT 10 MG/2 ML DISP.SYRIN ONE (16:32)
[2019-12-11] MEDS ORDERED: THIAMINE HCL 200 MG/2 ML VIAL ONE (16:32)
--- NOTE | 2019-12-11 16:35 | PDOC ---
Documentation entered by Stephanie Villanueva SCRIBE, acting as scribe for Gordo Holder MD. Gordo Holder MD: This documentation has been prepared by the Kay nuñez Xhesika, SCRIBE, under my direction and personally reviewed by me in its entirety. I confirm that the documentation accurately reflects all work, treatment, procedures, and medical decision making performed by me. Attending Attestation - Resident Resident Name: Lori Bejarano - ED Attending Attestation I have performed the following: I have examined & evaluated the patient, The case was reviewed & discussed with the resident, I agree w/resident's findings & plan, Exceptions are as noted - HPI HPI: 12/11/19 16:00 The patient is a 44y/o M who presents to the ED s/p witnessed seizure at work. Per EMS, pt fell forward and hit his head. Pt states he does not recall the incident. EMS notes pt had 4 other seizure and required Valium. Allergies: NKDA - Physicial Exam PE: 12/11/19 16:33 Patient is awake and alert, tremulous, follows commands + 5 cm soft tissue swelling and hematoma to the left periorbital area without crepitus or step-offs perrla, eomi cta rrr abd-sft, nt, nd no extr deform - Medical Decision Making 12/11/19 16:34 Patient is a 44-year-old male with history of alcohol abuse who presents to the ER after witnessed for generalized tonic-clonic seizures which required administration of Valium by EMS. In the ER, patient presents with traumatic facial injuries and tremulousness likely consistent with acute alcohol withdrawal. Will obtain CT of head, will administer additional Valium for control of alcohol withdrawal. Will obtain CBC/CMP/magnesium level. Will administer thiamine. Likely admission. Discharge - Discharge Information Problems reviewed: Yes Clinical Impression/Diagnosis: Seizure Alcohol withdrawal Qualifiers: Complication of substance-induced condition: with unspecified complication Qualified Code(s): F10.239 - Alcohol dependence with withdrawal, unspecified - Follow up/Referral - Patient Discharge Instructions - Post Discharge Activity
[2019-12-11 16:40] LABS: COCAINE, UR NEGATIVE ng/ml (CUTOFF=300); METHADONE, UR NEGATIVE ng/ml (CUTOFF=300); OPIATES, URI NEGATIVE ng/ml (CUTOFF=300); PHENCYCLIDINE,URINE NEGATIVE ng/ml (CUTOFF=25); URINE AMPHETAMINES NEGATIVE ng/ml (CUTOFF=500); URINE BARBITURATES NEGATIVE ng/ml (CUTOFF=200); URINE BENZODIAZEPINES NEGATIVE ng/ml (CUTOFF=200)
[2019-12-11 16:42] LABS: EPI CELLS 4 /uL (0-25.1); HYALINE CASTS 3 /uL (0-3.1); URINE APPEARANCE CLEAR; URINE BACTERIA 5 /uL (0-1359); URINE BILIRUBIN NEGATIVE (NEGATIVE); URINE COLOR YELLOW; URINE GLUCOSE (UA) NEGATIVE (NEGATIVE); URINE KETONE TRACE (NEGATIVE); URINE LEUK ESTERASE NEGATIVE (NEGATIVE); URINE NITRITE NEGATIVE (NEGATIVE); URINE PROTEIN 2+ (NEGATIVE); URINE RBC 15 /uL (0-23.9); URINE UROBILINOGEN 0.2 mg/dL (0.2-1.0); URINE WBC 5 /uL (0-25.8)
[2019-12-11] MEDS ORDERED: ACETAMINOPHEN 500 MG TABLET (FP) PO ONE (17:48)
[2019-12-11] MEDS ORDERED: ACETAMINOPHEN 325 MG TABLET (FP) ONE (17:50)
[2019-12-11] MEDS ORDERED: chlordiazePOXIDE HCL 25 MG CAPSULE PO ONE (18:20)
[2019-12-11] MEDS ORDERED: chlordiazePOXIDE HCL 25 MG CAPSULE ONE (18:32)
--- NOTE | 2019-12-11 21:58 | HP ---
Admitting History and Physical - Primary Care Physician PCP: Annabelle Silverman - Admission Chief Complaint: Seizure Activity, Syncope History of Present Illness: This is a 44 y/o male with a PMHx of HTN and Opiate/BZD Abuse (last used 5years ago currently on suboxone). Who presents to the ED via ambulance for seizure like activity and syncope. 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 He doesn't recall the ensuing seizure and woke up in the ambulance. He reports having pain at the left frontal lobe- hematoma. Patient denies having seizure like activity before. He does admit to drinking 15 cans of beer daily. He reports going to Alcohol Detox in the past. He reports starting back to work this week, and that during his time home due to COVID, he drank Beer daily. Patient denies illicit drugs, he is taking Suboxone. Patient denies fever, chills, cough, SOB, dizziness, CP, palpitations, AP, N/V/D, constipation, melena, hematochezia, hematuria, dysuria. Patient denies sick contacts or recent travel. History Source: Patient Limitations to Obtaining History: No Limitations - Past Medical History Cardiovascular: Yes: HTN - Smoking History Smoking history: Current every day smoker Have you smoked in the past 12 months: Yes Aproximately how many cigarettes per day: 0 If you are a former smoker, when did you quit?: Pt uses e cigarette. - Alcohol/Substance Use Hx Alcohol Use: Yes Number of Drinks Daily: 12 (Large cans of Beer) History of Substance Use: reports: Prescription - Social History Usual Living Arrangement: Yes: With Significant Other Do you think of yourself as: Straight/Heterosexual ADL: Independent Occupation: [employer] History of Recent Travel: No Home Medications - Allergies Allergies/Adverse Reactions: Allergies Allergy/AdvReac Type Severity Reaction Status Date / Time No Known Allergies Allergy Verified 12/11/19 15:22 - Home Medications Home Medications: Ambulatory Orders Labetalol HCl [Normodyne -] 200 mg PO BID 05/10/16 Buprenorphine HCl/Naloxone HCl [Buprenorp-Nalox 8-2 mg Sl Film] 1 each SL BID 09/02/20 Family Medical History Family History: As Documented Other Family History: Brother- Alcoholism, Seizure- Review of Systems - Review of Systems Constitutional: reports: Diaphoresis Eyes: reports: No Symptoms HENT: reports: No Symptoms Neck: reports: No Symptoms Cardiovascular: reports: No Symptoms Respiratory: reports: No Symptoms Gastrointestinal: reports: No Symptoms Genitourinary: reports: No Symptoms Breasts: reports: No Symptoms Reported Musculoskeletal: reports: Muscle Pain Integumentary: reports: No Symptoms Neurological: reports: Seizure, Syncope, Tremors, Unsteady Gait Endocrine: reports: No Symptoms Hematology/Lymphatic: reports: No Symptoms Psychiatric: reports: No Symptoms Pain Intensity: 6 Physical Examination Vital Signs: Vital Signs Temperature 97.2 F L 12/11/19 15:22 Pulse Rate 80 12/11/19 19:35 Respiratory Rate 17 12/11/19 19:35 Blood Pressure 130/84 12/11/19 19:35 O2 Sat by Pulse Oximetry (%) 96 12/11/19 19:35 Constitutional: Yes: Anxious, Diaphoresis, Moderate Distress Eyes: Yes: Conjunctiva Clear, EOM Intact, PERRL, Other (ecchymotic bruising left orbit) HENT: Yes: Atraumatic, Normocephalic Neck: Yes: WNL, Supple, Trachea Midline Cardiovascular: Yes: Regular Rate and Rhythm, S1 Respiratory: Yes: Regular, CTA Bilaterally Gastrointestinal: Yes: Soft, Ascites, Distention, Hypoactive Bowel Sounds ...Rectal Exam: Yes: Deferred Renal/: Yes: WNL Breast(s): Yes: WNL Musculoskeletal: Yes: Muscle Pain Extremities: Yes: WNL Edema: No Peripheral Pulses WNL: Yes Integumentary: Yes: Bruising Neurological: Yes: Alert, Oriented, Cran Nerves II-XII Intact, Tremors, Unsteady Gait ...Motor Strength: WNL Psychiatric: Yes: Alert, Oriented Labs: CBC, BMP 12/11/19 16:05 Laboratory Results - last 24 hr 12/11/19 12/11/19 12/11/19 15:30 15:30 16:05 WBC 4.6 RBC 4.36 Hgb 13.9 Hct 41.2 MCV 94.6 MCH 31.8 MCHC 33.7 RDW 13.4 Plt Count 120 L D MPV 7.4 L Absolute Neuts (auto) 3.9 Neutrophils % 84.8 H D Lymphocytes % 9.5 D Monocytes % 4.3 Eosinophils % 1.2 Basophils % 0.2 Nucleated RBC % 0 Sodium Potassium Chloride Carbon Dioxide Anion Gap BUN Creatinine Est GFR (CKD-EPI)AfAm Est GFR (CKD-EPI)NonAf POC Glucometer Random Glucose Hemoglobin A1c % Lactic Acid Calcium Phosphorus Magnesium Total Bilirubin AST ALT Alkaline Phosphatase Creatine Kinase Creatine Kinase Index CK-MB (CK-2) Troponin I Total Protein Albumin Triglycerides Cholesterol Total LDL Cholesterol HDL Cholesterol TSH Urine Color Yellow Urine Appearance Clear Urine pH 5.0 Ur Specific [place] 1.017 Urine Protein 2+ H Urine Glucose (UA) Negative Urine Ketones Trace H Urine Blood 1+ H Urine Nitrite Negative Urine Bilirubin Negative Urine Urobilinogen 0.2 Ur Leukocyte Esterase Negative Urine WBC (Auto) 5 Urine RBC (Auto) 15 Urine Casts (Auto) 3 U Epithel Cells (Auto) 4 Urine Bacteria (Auto) 5 Opiates Screen Negative Methadone Screen Negative Barbiturate Screen Negative Phencyclidine Screen Negative Ur Amphetamines Screen Negative MDMA (Ecstasy) Screen Negative Benzodiazepines Screen Negative Cocaine Screen Negative U Marijuana (THC) Screen Negative Alcohol, Quantitative 12/11/19 12/11/19 12/11/19 16:05 16:05 16:06 WBC RBC Hgb Hct MCV MCH MCHC RDW Plt Count MPV Absolute Neuts (auto) Neutrophils % Lymphocytes % Monocytes % Eosinophils % Basophils % Nucleated RBC % Sodium 139 Potassium 5.2 H Chloride 105 Carbon Dioxide 22 Anion Gap 12 BUN 11.9 Creatinine 0.9 Est GFR (CKD-EPI)AfAm 121.67 Est GFR (CKD-EPI)NonAf 104.98 POC Glucometer 118 Random Glucose 126 H Hemoglobin A1c % Lactic Acid 6.1 H* Calcium 8.8 Phosphorus Magnesium Total Bilirubin 0.8 AST 126 H ALT 124 H Alkaline Phosphatase 78 Creatine Kinase 282 Creatine Kinase Index 0.6 CK-MB (CK-2) 1.8 Troponin I < 0.02 Total Protein 8.0 Albumin 4.0 Triglycerides Cholesterol Total LDL Cholesterol HDL Cholesterol TSH Urine Color Urine Appearance Urine pH Ur Specific [place] Urine Protein Urine Glucose (UA) Urine Ketones Urine Blood Urine Nitrite Urine Bilirubin Urine Urobilinogen Ur Leukocyte Esterase Urine WBC (Auto) Urine RBC (Auto) Urine Casts (Auto) U Epithel Cells (Auto) Urine Bacteria (Auto) Opiates Screen Methadone Screen Barbiturate Screen Phencyclidine Screen Ur Amphetamines Screen MDMA (Ecstasy) Screen Benzodiazepines Screen Cocaine Screen U Marijuana (THC) Screen Alcohol, Quantitative 6.4 H 12/11/19 18:14 WBC RBC Hgb Hct MCV MCH MCHC RDW Plt Count MPV Absolute Neuts (auto) Neutrophils % Lymphocytes % Monocytes % Eosinophils % Basophils % Nucleated RBC % Sodium Potassium Chloride Carbon Dioxide Anion Gap BUN Creatinine Est GFR (CKD-EPI)AfAm Est GFR (CKD-EPI)NonAf POC Glucometer Random Glucose Hemoglobin A1c % Lactic Acid 1.4 Calcium Phosphorus Magnesium Total Bilirubin AST ALT Alkaline Phosphatase Creatine Kinase Creatine Kinase Index CK-MB (CK-2) Troponin I Total Protein Albumin Triglycerides Cholesterol Total LDL Cholesterol HDL Cholesterol TSH Urine Color Urine Appearance Urine pH Ur Specific [place] Urine Protein Urine Glucose (UA) Urine Ketones Urine Blood Urine Nitrite Urine Bilirubin Urine Urobilinogen Ur Leukocyte Esterase Urine WBC (Auto) Urine RBC (Auto) Urine Casts (Auto) U Epithel Cells (Auto) Urine Bacteria (Auto) Opiates Screen Methadone Screen Barbiturate Screen Phencyclidine Screen Ur Amphetamines Screen MDMA (Ecstasy) Screen Benzodiazepines Screen Cocaine Screen U Marijuana (THC) Screen Alcohol, Quantitative Current Medications Generic Name Dose Route Start Last Admin Trade Name Freq PRN Reason Stop Dose Admin Buprenorphine/Naloxone 1 each 12/12/19 22:00 Suboxone 8 Mg/2 Mg Film Packet SL HS BERRY Buprenorphine/Naloxone 1 each 12/12/19 10:00 Suboxone 8 Mg/2 Mg Film Packet SL DAILY BERRY Buprenorphine/Naloxone 2 each 12/12/19 10:00 Suboxone 2 Mg/0.5 Mg Film Packet SL DAILY BERRY Chlordiazepoxide HCl 50 mg 12/11/19 23:00 12/12/19 04:21 Librium - PO 12/12/19 23:01 50 mg [id number] BERRY Administration Chlordiazepoxide HCl 25 mg 12/13/19 05:00 Librium - PO 12/13/19 23:01 [id number] BERRY Chlordiazepoxide HCl 25 mg 12/11/19 22:41 Librium - PO 12/13/19 23:59 Q4H PRN WITHDRAWAL(CONT SUBST) Chlordiazepoxide HCl 10 mg 12/14/19 05:00 Librium - PO 12/14/19 23:01 [id number] BERRY Chlordiazepoxide HCl 10 mg 12/15/19 05:00 Librium - PO 12/15/19 17:01 Q12H BERRY Chlordiazepoxide HCl 10 mg 12/14/19 00:00 Librium - PO 12/15/19 00:00 Q4H PRN WITHDRAWAL(CONT SUBST) Chlordiazepoxide HCl 10 mg 12/16/19 05:00 Librium - PO 12/16/19 05:01 ONCE@0500 ONE Ondansetron HCl 4 mg 12/12/19 04:13 Zofran Injection IVPUSH Q6H PRN NAUSEA AND/OR VOMITING Imaging - Results Chest X-ray: Report Reviewed, Image Reviewed Cat Scan: Report Reviewed, Image Reviewed EKG: Image Reviewed Problem List - Problems (1) Syncope Assessment/Plan: Likely secondary to Alcohol withdrawal, less likely Arrhythmia Head CT- reviewed Serial enzymes Cardiac monitoring Appreciate Cardiology consult Carotid Doppler Lipid Panel Fall precautions Monitor CBC, CMP Code(s): R55 - SYNCOPE AND COLLAPSE (2) Seizure Assessment/Plan: Likely secondary to Alcohol Withdrawal Valium given in ED Head CT- reviewed Appreciate Neurology consult Seizure Precautions Monitor CBC, CMP Continue cardiac monitoring Code(s): R56.9 - UNSPECIFIED CONVULSIONS (3) Alcohol withdrawal Assessment/Plan: Counseled on Alcohol Cessation Cardiac monitoring CIWA-ar 10 Banana Bag, Librium given in ED Librium Protocol initiated Appreciate Detox Consult Seizure Precautions Monitor for DTs Fall Precautions Monitor CBC, CMP Code(s): F10.239 - ALCOHOL DEPENDENCE WITH WITHDRAWAL, UNSPECIFIED Qualifiers: Complication of substance-induced condition: with unspecified complication Qualified Code(s): F10.239 - Alcohol dependence with withdrawal, unspecified (4) Hypertension Assessment/Plan: stable Monitor BP Continue current med when verified Monitor renal function Code(s): I10 - ESSENTIAL (PRIMARY) HYPERTENSION Qualifiers: Hypertension type: secondary to other renal disorders Qualified Code(s): I15.1 - Hypertension secondary to other renal disorders (5) Benzodiazepine dependence Assessment/Plan: Continue Suboxone when verified Seizure Precautions Code(s): F13.20 - SEDATIVE, HYPNOTIC OR ANXIOLYTIC DEPENDENCE, UNCOMPLICATED (6) Electronic cigarette use Assessment/Plan: Counseled on E- Cigarette Cessation Code(s): Z72.0 - TOBACCO USE (7) Encounter for screening laboratory testing for COVID-19 virus Assessment/Plan: Low Risk COVID PCR-pending Isolation Precautions Code(s): Z11.59 - ENCOUNTER FOR SCREENING FOR OTHER VIRAL DISEASES Assessment/Plan This is a 44 y/o male with a PMHx of HTN and Opiate/BZD Abuse (last used 5years ago currently on suboxone). Admitted to Telemetry for Syncope, Seizure Activity, Alcohol Withdrawal for further evaluation of their emergent condition. Plan: See Problem List FEN PO fluids as tolerated Replete lytes prn Low Na Diet DVT ppx OOB SCDs Heparin SQ Dispo: Requires Inpatient Care Visit type - Emergency Visit Emergency Visit: Yes ED Registration Date: 12/11/19 Care time: The patient presented to the Emergency Department on the above date and was hospitalized for further evaluation of their emergent condition. - New Patient This patient is new to me today: Yes Date on this admission: 12/11/19 - Critical Care Critical Care patient: No
[2019-12-11] MEDS ORDERED: chlordiazePOXIDE HCL 25 MG CAPSULE PO PRN (22:41)
[2019-12-11 22:44] LABS: ALK PHOS 78 U/L (45-117); ANION GAP 12 MMOL/L (8-16); BILIRUBIN,TOTAL 0.8 mg/dL (0.2-1); BLOOD UREA NITROGEN 11.9 mg/dL (7-18); CALCIUM 8.8 mg/dL (8.5-10.1); CHLORIDE 105 mmol/L (98-107); CO2 22 mmol/L (21-32); CREATININE 0.9 mg/dL (0.55-1.3); GLUCOSE,RANDOM 126 mg/dL (74-106); POTASSIUM 5.2 mmol/L (3.5-5.1); SGOT/AST 126 U/L (15-37); SGPT/ALT 124 U/L (13-61); SODIUM 139 mmol/L (136-145)
[2019-12-11] MEDS: chlordiazePOXIDE HCL 25 MG CAPSULE PO SCH (22:59)
[2019-12-11] MEDS ORDERED: IBUPROFEN 400 MG TABLET (FP) PO ONE (23:26)
[2019-12-11] MEDS ORDERED: METOCLOPRAMIDE HCL INJECTION 10 MG/2 ML VIAL IVPUSH ONE (23:28)
[2019-12-11] MEDS ORDERED: METOCLOPRAMIDE HCL INJECTION 10 MG/2 ML VIAL ONE (23:29)
[2019-12-12] MEDS ORDERED: MELATONIN 5 MG TABLETS PO ONE (04:10)
[2019-12-12] MEDS ORDERED: ONDANSETRON 4 MG/2 ML VIAL IVPUSH PRN (04:13)
[2019-12-12] MEDS ORDERED: chlordiazePOXIDE HCL 25 MG CAPSULE ONE ×2 (04:15→10:49)
[2019-12-12] MEDS ORDERED: MELATONIN 5 MG TABLETS ONE (04:15)
[2019-12-12] MEDS: chlordiazePOXIDE HCL 25 MG CAPSULE PO SCH ×4 (04:21→22:11)
[2019-12-12 08:30] LABS: EOS % 3.4 % (0-4.5); HEMATOCRIT 37.7 % (35.4-49); HEMOGLOBIN 12.8 GM/dL (11.7-16.9); MCH 31.9 pg (25.7-33.7); MCHC 34.1 g/dl (32.0-35.9); MEAN CELL VOLUME 93.8 fl (80-96); MEAN PLT VOLUME 7.7 fl (7.5-11.1); MONO % 11.8 % (3.8-10.2); NEUT % 57.8 % (42.8-82.8); PLATELET COUNT 87 K/MM3 (134-434); RBC 4.02 M/mm3 (4.00-5.60); RDW 13.5 % (11.9-15.9); WHITE BLOOD COUNT 3.7 K/mm3 (4.0-10.0)
[2019-12-12 08:42] LABS: ALK PHOS 67 U/L (45-117); BILIRUBIN,TOTAL 1.3 mg/dL (0.2-1); CHLORIDE 104 mmol/L (98-107); CHOLESTEROL 189 mg/dL (50-200); CREATININE 0.7 mg/dL (0.55-1.3); GLUCOSE,RANDOM 83 mg/dL (74-106); HDL CHOLESTEROL 95 mg/dL (40-60); LDL CHOLESTEROL (ONLY SJRH) 76 mg/dL (5-100); PHOSPHOROUS 2.9 mg/dL (2.5-4.9); POTASSIUM 3.4 mmol/L (3.5-5.1); SODIUM 138 mmol/L (136-145); TOT PROT 6.6 g/dl (6.4-8.2); TRIGLYCERIDES 86 mg/dL (0-150)
[2019-12-12 08:45] LABS: ALBUMIN 3.4 g/dl (3.4-5.0); ANION GAP 9 MMOL/L (8-16); BLOOD UREA NITROGEN 10.6 mg/dL (7-18); CALCIUM 7.3 mg/dL (8.5-10.1); CO2 25 mmol/L (21-32); MAGNESIUM 2.2 mg/dL (1.8-2.4); SGOT/AST 68 U/L (15-37); SGPT/ALT 88 U/L (13-61)
[2019-12-12] MEDS ORDERED: BUPRENORPHINE/NALOXONE 8 MG/2 MG FILM PACKET ONE (09:25)
--- NOTE | 2019-12-12 09:58 | CON.CARD ---
Consult Consult Specialty:: Cardiology Referred by:: Demetra Reason for Consultation:: Syncope - History of Present Illness Chief Complaint: Seizure History of Present Illness: The patient is a 45-year-old man, alcoholic, opiate abuser, hypertension, now admitted after a witnessed seizure. The patient stated that he was at work. He has no recollections of the event. He was told by coworkers that he was standing in the room when he suddenly collapsed and had convulsions. The patient admits to heavy drinking for several days prior to the event. Denied drug abuse. The patient was comfortable and completely oriented at the time of my exam. Denied chest pains or shortness of breath. No palpitations. Also denied paroxysmal nocturnal dyspnea and orthopnea. - History Source History Provided By: Patient, Medical Record Limitations to Obtaining History: No Limitations - Past Medical History Cardio/Vascular: Yes: HTN - Alcohol/Substance Use Hx Alcohol Use: Yes History of Substance Use: reports: Prescription - Smoking History Smoking history: Current every day smoker Have you smoked in the past 12 months: Yes Aproximately how many cigarettes per day: 0 If you are a former smoker, when did you quit?: Pt uses e cigarette. 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 Medications - Allergies Allergies/Adverse Reactions: Allergies Allergy/AdvReac Type Severity Reaction Status Date / Time No Known Allergies Allergy Verified 12/11/19 15:22 - Home Medications Home Medications: Ambulatory Orders Labetalol HCl [Normodyne -] 200 mg PO BID 05/10/16 Buprenorphine HCl/Naloxone HCl [Buprenorp-Nalox 8-2 mg Sl Film] 1 each SL BID 12/11/19 Vital Signs: Vital Signs Temperature 98.2 F 12/12/19 06:16 Pulse Rate 72 12/12/19 07:05 Respiratory Rate 14 12/12/19 07:05 Blood Pressure 114/68 12/12/19 07:05 O2 Sat by Pulse Oximetry (%) 100 12/12/19 07:05 Constitutional: Yes: Well Nourished, No Distress, Calm Eyes: Yes: WNL, Conjunctiva Clear, EOM Intact HENT: Yes: WNL, Atraumatic, Normocephalic Neck: Yes: WNL, Supple, Trachea Midline Respiratory: Yes: WNL, Regular, CTA Bilaterally Gastrointestinal: Yes: WNL, Normal Bowel Sounds, Soft Renal/: Yes: WNL Cardiovascular: Yes: WNL, Regular Rate and Rhythm JVD: No Carotid Bruit: No PMI: Non-Displaced Heart Sounds: Yes: S1, S2 Murmur: Yes: Systolic Murmur, Grade 2 Musculoskeletal: Yes: WNL Extremities: Yes: WNL Edema: No Peripheral Pulses WNL: Yes Integumentary: Yes: WNL Neurological: Yes: WNL, Alert, Oriented ...Motor Strength: WNL Psychiatric: Yes: WNL, Alert, Oriented - Other Data Labs, Other Data: CBC, BMP 12/12/19 06:26 12/12/19 06:26 Troponin, BNP 12/11/19 12/12/19 16:05 06:26 Troponin I < 0.02 < 0.02 Troponin, BNP 12/11/19 12/12/19 16:05 06:26 Troponin I < 0.02 < 0.02 Assessment/Plan The patient is a 45-year-old man, alcoholic, opiate abuser, hypertension, now admitted after a witnessed seizure. The patient stated that he was at work. He has no recollections of the event. He was told by coworkers that he was standing in the room when he suddenly collapsed and had convulsions. The patient admits to heavy drinking for several days prior to the event. Denied drug abuse. The patient was comfortable and completely oriented at the time of my exam. Denied chest pains or shortness of breath. No palpitations. Also denied paroxysmal nocturnal dyspnea and orthopnea. There is no evidence of ischemia nor acute coronary syndrome. No CHF. Please admit to a monitored setting. Please arrange for an echocardiogram. Continue home medications. No need for further cardiac testing at this point. We will follow results. Cardiac stable.
[2019-12-12] MEDS ORDERED: BUPRENORPHINE/NALOXONE 8 MG/2 MG FILM PACKET SL SCH ×2 (10:00→22:00)
[2019-12-12] MEDS ORDERED: BUPRENORPHINE/NALOXONE 2 MG/0.5 MG FILM PACKET SL SCH (10:00)
[2019-12-12] MEDS: BUPRENORPHINE/NALOXONE 2 MG/0.5 MG FILM PACKET SL SCH (10:23)
[2019-12-12] MEDS: BUPRENORPHINE/NALOXONE 8 MG/2 MG FILM PACKET SL SCH (10:24)
[2019-12-12] MEDS ORDERED: ACETAMINOPHEN 325 MG TABLET (FP) PO PRN (11:14)
[2019-12-12] MEDS ORDERED: LORazepam 2 MG/ML SDV VIAL IVPUSH PRN (11:14)
--- NOTE | 2019-12-12 11:18 | PN ---
Progress Note, Physician Chief Complaint: New onset of seizures Alcohol abuse History of Present Illness: 44 y/o M with hx of HTN and opiate/BZD abuse (last used 5years ago currently on suboxone) presenting with new onset seizures. 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 He then doesnt recall the ensuing seizure and woke up in the ambulance. Reports some pain at the left frontal hematoma. No DAI, LH, chest pain, SOB, palp, abd pain, n/v. Reports never had seizures before but consumes significant amounts of alcohol daily, 10+ heavy beers. Recently started work again this week and he states he usually starts drinking around 5 pm, drinks at least 4-6 days/week. Pt reports of being admitted in the rehab in the past but only for opioid use. - Current Medication List Current Medications: Active Medications Buprenorphine/Naloxone (Suboxone 8 Mg/2 Mg Film Packet) 1 each SL [facility] Buprenorphine/Naloxone (Suboxone 8 Mg/2 Mg Film Packet) 1 each SL DAILY [facility] Last Admin: 12/12/19 10:24 Dose: 1 each Documented by: Buprenorphine/Naloxone (Suboxone 2 Mg/0.5 Mg Film Packet) 2 each SL DAILY [facility] Last Admin: 12/12/19 10:23 Dose: 2 each Documented by: Chlordiazepoxide HCl (Librium -) 50 mg PO [id number] [facility] Stop: 12/12/19 23:01 Last Admin: 12/12/19 10:53 Dose: 50 mg Documented by: Chlordiazepoxide HCl (Librium -) 25 mg PO [id number] [facility] Stop: 12/13/19 23:01 Chlordiazepoxide HCl (Librium -) 25 mg PO Q4H PRN PRN Reason: WITHDRAWAL(CONT SUBST) Stop: 12/13/19 23:59 Chlordiazepoxide HCl (Librium -) 10 mg PO [id number] [facility] Stop: 12/14/19 23:01 Chlordiazepoxide HCl (Librium -) 10 mg PO Q12H BERRY Stop: 12/15/19 17:01 Chlordiazepoxide HCl (Librium -) 10 mg PO Q4H PRN PRN Reason: WITHDRAWAL(CONT SUBST) Stop: 12/15/19 00:00 Chlordiazepoxide HCl (Librium -) 10 mg PO ONCE@0500 ONE Stop: 12/16/19 05:01 Ondansetron HCl (Zofran Injection) 4 mg IVPUSH Q6H PRN PRN Reason: NAUSEA AND/OR VOMITING - Objective Vital Signs: Vital Signs Temperature 98.2 F 12/12/19 10:43 Pulse Rate 55 L 12/12/19 10:43 Respiratory Rate 14 12/12/19 07:05 Blood Pressure 133/89 12/12/19 10:43 O2 Sat by Pulse Oximetry (%) 100 12/12/19 10:43 Constitutional: Yes: Well Nourished, No Distress, Calm Eyes: Yes: Other (Left fifi-orbital hematoma) Cardiovascular: Yes: Regular Rate and Rhythm Respiratory: Yes: Regular, CTA Bilaterally Gastrointestinal: Yes: Normal Bowel Sounds, Soft Genitourinary: Yes: WNL Musculoskeletal: Yes: WNL Extremities: Yes: WNL Edema: No Peripheral Pulses WNL: Yes Neurological: Yes: Alert, Oriented, Tremors (fine) Psychiatric: Yes: Alert, Oriented Labs: CBC, BMP 12/12/19 06:26 12/12/19 06:26 Problem List - Problems (1) Thrombocytopenia Assessment/Plan: -likely 2/2 to chronic alcohol abuse -Hematology consult -monitor trend Problems reviewed: Yes Code(s): D69.6 - THROMBOCYTOPENIA, UNSPECIFIED (2) Elevated LFTs Assessment/Plan: 2/2 to alcohol abuse -monitor trend Problems reviewed: Yes Code(s): R79.89 - OTHER SPECIFIED ABNORMAL FINDINGS OF BLOOD CHEMISTRY (3) Alcohol withdrawal Assessment/Plan: -librium protocol -Detox consult -Ativan IVP prn for seizures only Problems reviewed: Yes Code(s): F10.239 - ALCOHOL DEPENDENCE WITH WITHDRAWAL, UNSPECIFIED Qualifiers: Complication of substance-induced condition: with unspecified complication Qualified Code(s): F10.239 - Alcohol dependence with withdrawal, unspecified (4) Seizure Assessment/Plan: -New onset 2/2 to withdrawal -CT head negative except left fifi-orbital edema 2/2 to injury during seizure -Neurology consult -EEG pending Problems reviewed: Yes Code(s): R56.9 - UNSPECIFIED CONVULSIONS (5) Hypertension Assessment/Plan: -stable at this time -monitor trend -mild bradycardia -avoid BB Problems reviewed: Yes Code(s): I10 - ESSENTIAL (PRIMARY) HYPERTENSION Qualifiers: Hypertension type: secondary to other renal disorders Qualified Code(s): I15.1 - Hypertension secondary to other renal disorders Assessment/Plan See problem list
[2019-12-12] MEDS ORDERED: MULTIVITAMINS (DAILY MVI) TABLET (FP) ONE (11:49)
[2019-12-12] MEDS ORDERED: THIAMINE HCL 200 MG/2 ML VIAL ONE (11:49)
[2019-12-12] MEDS ORDERED: POTASSIUM CHLORIDE TABS 10 MEQ TABLET.ER (FP) ONE (11:50)
[2019-12-12] MEDS: POTASSIUM CHLORIDE TABS 20 MEQ TABLET.ER (FP) PO SCH (11:56)
[2019-12-12] MEDS: MULTIVITAMINS (DAILY MVI) TABLET (FP) PO SCH (11:57)
[2019-12-12] MEDS: THIAMINE HCL 200 MG/2 ML VIAL IVPB SCH (11:57)
--- NOTE | 2019-12-12 12:16 | CON.NEURO ---
Consult - Past Medical History Cardio/Vascular: Yes: HTN - Alcohol/Substance Use Hx Alcohol Use: Yes Number of Drinks Daily: 12 (Large cans of Beer) History of Substance Use: reports: Prescription - Smoking History Smoking history: Current every day smoker Have you smoked in the past 12 months: Yes Aproximately how many cigarettes per day: 0 If you are a former smoker, when did you quit?: Pt uses e cigarette. 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 History of Recent Travel: No Home Medications - Allergies Allergies/Adverse Reactions: Allergies Allergy/AdvReac Type Severity Reaction Status Date / Time No Known Allergies Allergy Verified 12/11/19 15:22 - Home Medications Home Medications: Ambulatory Orders Labetalol HCl [Normodyne -] 200 mg PO BID 05/10/16 Buprenorphine HCl/Naloxone HCl [Buprenorp-Nalox 8-2 mg Sl Film] 1 each SL BID 12/11/19 Family Medical History Other Family History: Brother- Alcoholism, Seizure- Physical Exam-Neuro Vital Signs: Vital Signs Temperature 98.2 F 12/12/19 10:43 Pulse Rate 55 L 12/12/19 10:43 Respiratory Rate 14 12/12/19 07:05 Blood Pressure 133/89 12/12/19 10:43 O2 Sat by Pulse Oximetry (%) 100 12/12/19 10:43 Labs: CBC, BMP 12/12/19 06:26 12/12/19 06:26 Assessment/Plan cc New onset seizure HPI 44 year old man with histor of HTN and opiate/BZD abuse (last used 5years ago currently on suboxone) presenting with new onset seizures. He has been drinking everyday and he has not drunk on december 10, and he had seizure. IT was gtc, loc and no tongue bite. 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 Pateint goes to drug rehab and get utox rigoberto time. He denies doing any other drugs. PMHx: as noted above ROS: as noted SHx: + tobacco use; +significant alcohol use; no rec drugs Allergies: NKDA Allergies/Adverse Reactions: Allergies Allergy/AdvReac Type Severity Reaction Status Date / Time No Known Allergies Allergy Verified 12/11/19 15:22 Home Medications: Labetalol HCl [Normodyne -] 200 mg PO BID 05/10/16 Buprenorphine HCl/Naloxone HCl [Buprenorp-Nalox 8-2 mg Sl Film] 1 each SL BID 12/11/19 ROS,FH,SH reviewed in chart NEUROLOGICAL EXAMINATION Alert oriented x 3, speech is normal vss, eomi, pupils reactive no face asymmetry moving all ext sensation is normal ct head is normal eeg is pending Assessment/Plan 44 year old man with histor of HTN and opiate/BZD abuse (last used 5years ago currently on suboxone) presenting with new onset seizures. -- Suspect Alcohol withdrwal seizure, now back to baseline, ct head is normal Plan: - no need for mri of brain - eeg is pending seizure precautions - psych consult and refrain from alcohol - mvi, thiamine and folic acid, benzo prn - Consider psych consult Thanking you so much Jose Rafael Parada MD
[2019-12-12] MEDS ORDERED: FOLIC ACID 1 MG TABLET (FP) ONE (14:38)
[2019-12-12] MEDS: FOLIC ACID 1 MG TABLET (FP) PO SCH (14:42)
[2019-12-12] MEDS: NICOTINE 21 MG/24 HOURS TOPICAL PATCH TD SCH (14:43)
--- NOTE | 2019-12-12 15:29 | EKG ---
Test Reason : Blood Pressure : / mmHG Vent. Rate : 075 BPM Atrial Rate : 075 BPM P-R Int : 174 ms QRS Dur : 090 ms QT Int : 372 ms P-R-T Axes : 036 068 042 degrees QTc Int : 415 ms NORMAL SINUS RHYTHM NORMAL ECG WHEN COMPARED WITH ECG OF 29-AUG-2018 07:49, NO SIGNIFICANT CHANGE WAS FOUND Confirmed by PERRY LOVE MD ([id number]) on 12/12/2019 3:28:34 PM Referred By: Confirmed By:PERRY LOVE MD
--- NOTE | 2019-12-12 15:53 | CON.HO ---
Consult Consult Specialty:: Hematology Reason for Consultation:: Thrombocytopenia - History of Present Illness Chief Complaint: s/p witnessed seizure History of Present Illness: 44y M with polysubstsance use (quit 5 years prior) ETOH use (15 beers per day) HTN presents for witnessed seizure. 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 When he was brought to ER, ETOH level was elevated. He also sustained a hematoma on the left forehead with fifi orbital hematoma as well. He was admitted for ETOH withdrawal thought to be the cause of his seizure. Labs were notable for a plt count of 120k on initial arrival with plt count of 87 k this am. Hematology consulted for thrombocytopenia workup. Of note, patient does not follow with PMD and has not had baseline lab work done in many years - History Source History Provided By: Patient - Past Medical History Cardio/Vascular: Yes: HTN - Past Surgical History Past Surgical History: Yes: None - Alcohol/Substance Use Hx Alcohol Use: Yes Number of Drinks Daily: 12 (Large cans of Beer) History of Substance Use: reports: Prescription - Smoking History Smoking history: Current every day smoker Have you smoked in the past 12 months: Yes Aproximately how many cigarettes per day: 0 If you are a former smoker, when did you quit?: Pt uses e cigarette. 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 History of Recent Travel: No Home Medications - Allergies Allergies/Adverse Reactions: Allergies Allergy/AdvReac Type Severity Reaction Status Date / Time No Known Allergies Allergy Verified 12/11/19 15:22 - Home Medications Home Medications: Ambulatory Orders Labetalol HCl [Normodyne -] 200 mg PO BID 05/10/16 Buprenorphine HCl/Naloxone HCl [Buprenorp-Nalox 8-2 mg Sl Film] 1 each SL BID 12/11/19 Family Medical History Family History: Unremarkable Other Family History: Brother- Alcoholism, Seizure- Review of Systems - Review of Systems Constitutional: reports: Lethargy Eyes: reports: Other (left eye hematoma) Cardiovascular: reports: No Symptoms Respiratory: reports: No Symptoms Gastrointestinal: reports: No Symptoms Neurological: reports: Confusion, Seizure Physical Exam Vital Signs: Vital Signs Temperature 98.2 F 12/12/19 10:43 Pulse Rate 55 L 12/12/19 10:43 Respiratory Rate 14 09/03/20 07:05 Blood Pressure 133/89 12/12/19 10:43 O2 Sat by Pulse Oximetry (%) 100 12/12/19 10:43 Constitutional: Yes: Anxious Eyes: Yes: Other (significant fifi orbital L eye edema and hematoma s/p fall from seizure) HENT: Yes: Normocephalic Neck: Yes: WNL Cardiovascular: Yes: WNL Respiratory: Yes: WNL Gastrointestinal: Yes: WNL ...Rectal Exam: Yes: Deferred Renal/: Yes: WNL Musculoskeletal: Yes: WNL Integumentary: Yes: Bruising, Erythema Neurological: Yes: Alert, Oriented Psychiatric: Yes: WNL Labs: CBC, BMP 12/12/19 06:26 12/12/19 06:26 Assessment/Plan 44y M with poly substance use and active ETOh use presents for witnessed seizure; admitted for alcohol withdrawal; heme consulted for thrombocytopenia plt count 120k->87k most likely dilution 2/2 fluids -peripheral smear reviewed; true thrombocytopenia seen, no clumping, Hyposegmented neutrophils (can be seen in b12 deficiency) -no baseline to compare -would obtain HIV, hepatitis panel, B12/folate, iron panel, TSH, coags ; plt count most likely 2/2 ETOH use/splenic sequestration but would rule out reversible causes
[2019-12-12 18:45] VITALS: TEMP 98.6; BMI 30.8
[2019-12-12] MEDS ORDERED: diphenhydrAMINE HCL 25 MG CAPSULE (FP) PO PRN (21:02)
[2019-12-12] MEDS: LABETALOL HCL 100 MG TABLET (FP) PO SCH (22:13)
[2019-12-12 23:09] VITALS: BP 177/106; PULSE 67
[2019-12-13] MEDS: chlordiazePOXIDE HCL 25 MG CAPSULE PO SCH ×2 (05:36→11:00)
[2019-12-13 09:30] LABS: ALBUMIN 3.6 g/dl (3.4-5.0); BLOOD UREA NITROGEN 11.2 mg/dL (7-18); CALCIUM 8.5 mg/dL (8.5-10.1); CREATININE 0.8 mg/dL (0.55-1.3); POTASSIUM 3.9 mmol/L (3.5-5.1)
[2019-12-13 09:31] LABS: BILIRUBIN,TOTAL 1.3 mg/dL (0.2-1); TOT PROT 7.2 g/dl (6.4-8.2)
[2019-12-13] MEDS: LABETALOL HCL 100 MG TABLET (FP) PO SCH (09:36)
[2019-12-13] MEDS: BUPRENORPHINE/NALOXONE 8 MG/2 MG FILM PACKET SL SCH (09:36)
[2019-12-13] MEDS: FOLIC ACID 1 MG TABLET (FP) PO SCH (09:38)
[2019-12-13] MEDS: MULTIVITAMINS (DAILY MVI) TABLET (FP) PO SCH (09:38)
[2019-12-13] MEDS: NICOTINE 21 MG/24 HOURS TOPICAL PATCH TD SCH (09:39)
[2019-12-13] MEDS ORDERED: PT OWN MED DRAWER 7, Y5N ONE (09:39)
[2019-12-13] MEDS: THIAMINE HCL 200 MG/2 ML VIAL IVPB SCH (09:39)
[2019-12-13] MEDS: POTASSIUM CHLORIDE TABS 20 MEQ TABLET.ER (FP) PO SCH (09:39)
[2019-12-13 09:40] LABS: EOS % 4.4 % (0-4.5); HEMATOCRIT 39.3 % (35.4-49); HEMOGLOBIN 13.5 GM/dL (11.7-16.9); LYMPH % 26.8 % (8-40); MCH 32.1 pg (25.7-33.7); MCHC 34.4 g/dl (32.0-35.9); MEAN CELL VOLUME 93.4 fl (80-96); MEAN PLT VOLUME 7.9 fl (7.5-11.1); MONO % 9.7 % (3.8-10.2); NEUT % 58.1 % (42.8-82.8); PLATELET COUNT 87 K/MM3 (134-434); RBC 4.21 M/mm3 (4.00-5.60); RDW 12.9 % (11.9-15.9); WHITE BLOOD COUNT 3.9 K/mm3 (4.0-10.0)
--- NOTE | 2019-12-13 10:14 | PN ---
Progress Note, Physician Chief Complaint: Syncope History of Present Illness: The patient is a 45-year-old man, alcoholic, opiate abuser, hypertension, now admitted after a witnessed seizure. The patient stated that he was at work. He has no recollections of the event. He was told by coworkers that he was standing in the room when he suddenly collapsed and had convulsions. The patient admits to heavy drinking for several days prior to the event. Denied drug abuse. The patient was comfortable and completely oriented at the time of my exam. Denied chest pains or shortness of breath. No palpitations. Also denied paroxysmal nocturnal dyspnea and orthopnea. There is no evidence of ischemia nor acute coronary syndrome. No CHF. - Current Medication List Current Medications: Active Medications Acetaminophen (Tylenol -) 650 mg PO Q4H PRN PRN Reason: fever>100.0F Buprenorphine/Naloxone (Suboxone 8 Mg/2 Mg Film Packet) 1 each SL HS [facility] Last Admin: 12/12/19 22:21 Dose: Not Given Documented by: Buprenorphine/Naloxone (Suboxone 8 Mg/2 Mg Film Packet) 1 each SL DAILY [facility] Last Admin: 12/13/19 09:36 Dose: 1 each Documented by: Buprenorphine/Naloxone (Suboxone 2 Mg/0.5 Mg Film Packet) 2 each SL DAILY [facility] Last Admin: 12/12/19 10:23 Dose: 2 each Documented by: Chlordiazepoxide HCl (Librium -) 25 mg PO [id number] [facility] Stop: 12/13/19 23:01 Last Admin: 12/13/19 05:36 Dose: 25 mg Documented by: Chlordiazepoxide HCl (Librium -) 25 mg PO Q4H PRN PRN Reason: WITHDRAWAL(CONT SUBST) Stop: 12/13/19 23:59 Chlordiazepoxide HCl (Librium -) 10 mg PO [id number] [facility] Stop: 12/14/19 23:01 Chlordiazepoxide HCl (Librium -) 10 mg PO Q12H [facility] Stop: 12/15/19 17:01 Chlordiazepoxide HCl (Librium -) 10 mg PO Q4H PRN PRN Reason: WITHDRAWAL(CONT SUBST) Stop: 12/15/19 00:00 Chlordiazepoxide HCl (Librium -) 10 mg PO ONCE@0500 ONE Stop: 12/16/19 05:01 Diphenhydramine HCl (Benadryl -) 25 mg PO HS PRN PRN Reason: INSOMNIA Last Admin: 12/12/19 22:13 Dose: 25 mg Documented by: Folic Acid (Folic Acid -) 1 mg PO DAILY [facility] Last Admin: 12/13/19 09:38 Dose: 1 mg Documented by: Labetalol HCl (Normodyne -) 200 mg PO BID [facility] Last Admin: 12/13/19 09:36 Dose: 200 mg Documented by: Lorazepam (Ativan Injection -) 1 mg IVPUSH Q6H PRN PRN Reason: seizure Multivitamins/Minerals/Vitamin C (Tab-A-Vit -) 1 tab PO DAILY [facility] Last Admin: 12/13/19 09:38 Dose: 1 tab Documented by: Nicotine (Nicoderm Patch -) 21 mg TD DAILY [facility] Last Admin: 12/13/19 09:39 Dose: Not Given Documented by: Ondansetron HCl (Zofran Injection) 4 mg IVPUSH Q6H PRN PRN Reason: NAUSEA AND/OR VOMITING Thiamine HCl (Vitamin B1 Injection -) 200 mg IVPB DAILY [facility] Last Admin: 12/13/19 09:39 Dose: Not Given Documented by: - Objective Vital Signs: Vital Signs Temperature 98.6 F 12/12/19 18:25 Pulse Rate 67 12/12/19 20:00 Respiratory Rate 18 12/13/19 05:14 Blood Pressure 177/106 H 12/12/19 20:00 O2 Sat by Pulse Oximetry (%) 95 12/13/19 05:14 Constitutional: Yes: Well Nourished, No Distress, Calm Eyes: Yes: WNL, Conjunctiva Clear, EOM Intact HENT: Yes: WNL, Normocephalic Neck: Yes: WNL, Supple, Trachea Midline Cardiovascular: Yes: WNL, Regular Rate and Rhythm Respiratory: Yes: WNL, Regular, CTA Bilaterally Gastrointestinal: Yes: WNL, Normal Bowel Sounds, Soft ...Rectal Exam: Yes: Deferred Genitourinary: Yes: WNL Breast(s): Yes: WNL Musculoskeletal: Yes: WNL Extremities: Yes: WNL Edema: No Peripheral Pulses WNL: Yes Integumentary: Yes: WNL Neurological: Yes: WNL, Alert, Oriented ...Motor Strength: WNL Labs: CBC, BMP 12/13/19 08:10 12/13/19 08:10 Assessment/Plan The patient is a 45-year-old man, alcoholic, opiate abuser, hypertension, now admitted after a witnessed seizure. The patient stated that he was at work. He has no recollections of the event. He was told by coworkers that he was standing in the room when he suddenly collapsed and had convulsions. The patient admits to heavy drinking for several days prior to the event. Denied drug abuse. The patient was comfortable and completely oriented at the time of my exam. Denied chest pains or shortness of breath. No palpitations. Also denied paroxysmal nocturnal dyspnea and orthopnea. There is no evidence of ischemia nor acute coronary syndrome. No CHF. The patient remains quite stable from the cardiac standpoint. No cardiac complaints. Neurology work-up in progress. No need for further cardiac work-up at this point. Start Norvasc 5mg daily. Please arrange for an outpatient follow-up with Dr. Rizvi within 10 days of discharge. Please do not hesitate to call us PRN.
--- NOTE | 2019-12-13 10:21 | PN ---
Progress Note, Physician Chief Complaint: New onset of seizures Alcohol abuse History of Present Illness: 44 y/o M with hx of HTN and opiate/BZD abuse (last used 5years ago currently on suboxone) presenting with new onset seizures. 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 He then doesnt recall the ensuing seizure and woke up in the ambulance. Reports some pain at the left frontal hematoma. No DAI, LH, chest pain, SOB, palp, abd pain, n/v. Reports never had seizures before but consumes significant amounts of alcohol daily, 10+ heavy beers. Recently started work again this week and he states he usually starts drinking around 5 pm, drinks at least 4-6 days/week. Pt reports of being admitted in the rehab in the past but only for opioid use. NAD Anxious, wants to leave Refuses inpatient rehab Agrees, anxiety as an underlying cause of alcohol abuse, brother at 32 with alcoholic cirrhosis Refuses to treat anxiety with meds Wants to try psychotherapy - Current Medication List Current Medications: Active Medications Acetaminophen (Tylenol -) 650 mg PO Q4H PRN PRN Reason: fever>100.0F Buprenorphine/Naloxone (Suboxone 8 Mg/2 Mg Film Packet) 1 each SL HS [facility] Last Admin: 12/12/19 22:21 Dose: Not Given Documented by: Buprenorphine/Naloxone (Suboxone 8 Mg/2 Mg Film Packet) 1 each SL DAILY [facility] Last Admin: 12/13/19 09:36 Dose: 1 each Documented by: Buprenorphine/Naloxone (Suboxone 2 Mg/0.5 Mg Film Packet) 2 each SL DAILY [facility] Last Admin: 12/12/19 10:23 Dose: 2 each Documented by: Chlordiazepoxide HCl (Librium -) 25 mg PO [id number] [facility] Stop: 12/13/19 23:01 Last Admin: 12/13/19 05:36 Dose: 25 mg Documented by: Chlordiazepoxide HCl (Librium -) 25 mg PO Q4H PRN PRN Reason: WITHDRAWAL(CONT SUBST) Stop: 12/13/19 23:59 Chlordiazepoxide HCl (Librium -) 10 mg PO [id number] [facility] Stop: 12/14/19 23:01 Chlordiazepoxide HCl (Librium -) 10 mg PO Q12H COUNT INCLUDES THE [facility] Stop: 12/15/19 17:01 Chlordiazepoxide HCl (Librium -) 10 mg PO Q4H PRN PRN Reason: WITHDRAWAL(CONT SUBST) Stop: 12/15/19 00:00 Chlordiazepoxide HCl (Librium -) 10 mg PO ONCE@0500 ONE Stop: 12/16/19 05:01 Diphenhydramine HCl (Benadryl -) 25 mg PO HS PRN PRN Reason: INSOMNIA Last Admin: 12/12/19 22:13 Dose: 25 mg Documented by: Folic Acid (Folic Acid -) 1 mg PO DAILY [facility]CLUDES [facility] Last Admin: 12/13/19 09:38 Dose: 1 mg Documented by: Labetalol HCl (Normodyne -) 200 mg PO BID COUNT INCLUDES THE [facility] Last Admin: 12/13/19 09:36 Dose: 200 mg Documented by: Lorazepam (Ativan Injection -) 1 mg IVPUSH Q6H PRN PRN Reason: seizure Multivitamins/Minerals/Vitamin C (Tab-A-Vit -) 1 tab PO DAILY [facility] Last Admin: 12/13/19 09:38 Dose: 1 tab Documented by: Nicotine (Nicoderm Patch -) 21 mg TD DAILY [facility] Last Admin: 12/13/19 09:39 Dose: Not Given Documented by: Ondansetron HCl (Zofran Injection) 4 mg IVPUSH Q6H PRN PRN Reason: NAUSEA AND/OR VOMITING Thiamine HCl (Vitamin B1 Injection -) 200 mg IVPB DAILY [facility]CLUDES [facility] Last Admin: 12/13/19 09:39 Dose: Not Given Documented by: - Objective Vital Signs: Vital Signs Temperature 98.6 F 12/12/19 18:25 Pulse Rate 67 12/12/19 20:00 Respiratory Rate 18 12/13/19 05:14 Blood Pressure 177/106 H 12/12/19 20:00 O2 Sat by Pulse Oximetry (%) 95 12/13/19 05:14 Constitutional: Yes: Well Nourished, No Distress, Anxious Cardiovascular: Yes: Regular Rate and Rhythm Respiratory: Yes: Regular, CTA Bilaterally Gastrointestinal: Yes: Normal Bowel Sounds, Soft Genitourinary: Yes: WNL Musculoskeletal: Yes: WNL Extremities: Yes: WNL Edema: No Peripheral Pulses WNL: Yes Neurological: Yes: Alert, Oriented Psychiatric: Yes: Alert, Oriented Labs: CBC, BMP 12/13/19 08:10 12/13/19 08:10 Problem List - Problems (1) Thrombocytopenia Assessment/Plan: -likely 2/2 to chronic alcohol abuse -Hematology consult -monitor trend -If pt leaves, will need close monitoring, instructed to find a PCP and follow up Problems reviewed: Yes Code(s): D69.6 - THROMBOCYTOPENIA, UNSPECIFIED (2) Elevated LFTs Assessment/Plan: 2/2 to alcohol abuse -Elevated today -U/S liver limited -Hold standing benzodiazepines for now, keep it PRN Problems reviewed: Yes Code(s): R79.89 - OTHER SPECIFIED ABNORMAL FINDINGS OF BLOOD CHEMISTRY (3) Alcohol withdrawal Assessment/Plan: -librium protocol -Detox consult Problems reviewed: Yes Code(s): F10.239 - ALCOHOL DEPENDENCE WITH WITHDRAWAL, UNSPECIFIED Qualifiers: Complication of substance-induced condition: with unspecified complication Qualified Code(s): F10.239 - Alcohol dependence with withdrawal, unspecified (4) Seizure Assessment/Plan: -New onset 2/2 to withdrawal -CT head negative except left fifi-orbital edema 2/2 to injury during seizure -Neurology consult -EEG done, report pending Problems reviewed: Yes Code(s): R56.9 - UNSPECIFIED CONVULSIONS (5) Hypertension Assessment/Plan: -stable at this time -monitor trend -Bradycardia improved -Resume BB Problems reviewed: Yes Code(s): I10 - ESSENTIAL (PRIMARY) HYPERTENSION Qualifiers: Hypertension type: secondary to other renal disorders Qualified Code(s): I15.1 - Hypertension secondary to other renal disorders Assessment/Plan See problem list Pt understands the consequences of leaving AMA Psychotherapy resources provided by [facility].
--- NOTE | 2019-12-13 10:37 | PN ---
Progress Note (short form) - Note Progress Note: 44 year old man with histor of HTN and opiate/BZD abuse (last used 5years ago currently on suboxone) presenting with new onset seizures. He has been drinking everyday and he has not drunk on december 10, and he had seizure. IT was gtc, loc and no tongue bite. 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 Pateint goes to drug rehab and get utox rigoberto time. He denies doing any other drugs. -- pateint has no seizure. NEUROLOGICAL EXAMINATION Alert oriented x 3, speech is normal vss, eomi, pupils reactive no face asymmetry moving all ext sensation is normal ct head is normal eeg is pending Assessment/Plan 44 year old man with histor of HTN and opiate/BZD abuse (last used 5years ago currently on suboxone) presenting with new onset seizures. -- Suspect Alcohol withdrwal seizure, now back to baseline, ct head is normal Plan: - no need for mri of brain - eeg is pending - psych consult and refrain from alcohol - mvi, thiamine and folic acid, benzo prn - follow up outpatient. Thanking you so much Jose Rafael Parada MD
[2019-12-13] MEDS: BUPRENORPHINE/NALOXONE 2 MG/0.5 MG FILM PACKET SL SCH (12:36)
[2019-12-13] MEDS ORDERED: chlordiazePOXIDE HCL 25 MG CAPSULE PO PRN (12:51)
[2019-12-14] MEDS ORDERED: chlordiazePOXIDE HCL 10 MG CAPSULE PO PRN
[2019-12-14] MEDS ORDERED: chlordiazePOXIDE HCL 10 MG CAPSULE PO SCH (05:00)
[2019-12-15] MEDS ORDERED: chlordiazePOXIDE HCL 10 MG CAPSULE PO SCH (05:00)
[2019-12-16] MEDS ORDERED: chlordiazePOXIDE HCL 10 MG CAPSULE PO ONE (05:00)
== END 2019-12-13 13:53 | disposition left against medical advice (07) | DRG 894 ==
LOC: JER 15:00 → JERBED 18:22 → J6S 12-12 17:01
PROVIDERS: ATTEND Family Medicine
DX: F10.239 Alcohol dependence with withdrawal, unspecified (principal); F13.20 Sedative, hypnotic or anxiolytic dependence, uncomplicated; I10 Essential (primary) hypertension; F17.210 Nicotine dependence, cigarettes, uncomplicated; R55 Syncope and collapse; Z11.59 Encounter for screening for other viral diseases; F11.10 Opioid abuse, uncomplicated
CPT/HCPCS: 36415; 70450-TC; 71045-TC-FY; 76705-TC; 80053; 80061; 80307; 81003; 82550; 82553; 82607; 82746; 82962; 83036; 83605; 83721; 83735; 84100; 84443; 84484; 85025; 93005; 93010; 93880-TC; 99285-25; U0003

== ENCOUNTER 2020-09-08 09:07 | Emergency (ER) | payer BC ==
[2020-09-08 09:14] VITALS: BP 146/99; PULSE 92; TEMP 98.6; BMI 29.7
== END 2020-09-08 09:44 | disposition home or self-care (01) ==
LOC: JER 09:07
DX: M79.671 Pain in right foot (principal)
CPT/HCPCS: 73630-TC-RT-FY; 99283-25

== ENCOUNTER 2022-12-10 00:21 | Emergency (ER) | payer BC ==
[2022-12-10 00:36] VITALS: BP 161/103; PULSE 90; RESP 18; TEMP 98.2; BMI 33.3
== END 2022-12-10 03:42 | disposition home or self-care (01) ==
LOC: JER 00:21
DX: M54.6 Pain in thoracic spine (principal); M54.2 Cervicalgia; V43.02XA Car driver injured in collision with other type car in nontraffic accident, initial encounter
CPT/HCPCS: 72040-TC; 72070-TC-FY; 99283-25

== ENCOUNTER 2022-12-19 09:21 | Emergency (ER) | payer OTHER, BC ==
[2022-12-19 09:54] VITALS: BP 142/93; PULSE 87; RESP 18; TEMP 98.2; BMI 33.3
[2022-12-19] MEDS ORDERED: KETOROLAC TROMETHAMINE 30 MG/1 ML VIAL IM ONE (10:19)
[2022-12-19] MEDS ORDERED: ACETAMINOPHEN 325 MG TABLET (FP) PO ONE (10:19)
[2022-12-19] MEDS ORDERED: KETOROLAC TROMETHAMINE 15 MG/ML VIAL ONE (10:20)
[2022-12-19] MEDS ORDERED: ACETAMINOPHEN 325 MG TABLET (FP) ONE (10:20)
[2022-12-19] MEDS ORDERED: LIDOCAINE 5% TOPICAL PATCH TP ONE (10:44)
[2022-12-19] MEDS ORDERED: LIDOCAINE 5% TOPICAL PATCH ONE (10:46)
[2022-12-19] MEDS ORDERED: LIDOCAINE PATCH REMOVAL MC SCH (22:00)
== END 2022-12-19 10:45 | disposition home or self-care (01) ==
LOC: JER 09:21 → JERFT 09:21
PROC: 3E0233Z Introduction of Anti-inflammatory into Muscle, Percutaneous Approach (ICD-10-PCS; principal; 2022-12-19)
DX: M54.2 Cervicalgia (principal); V87.7XXA Person injured in collision between other specified motor vehicles (traffic), initial encounter
CPT/HCPCS: 99284-25

== ENCOUNTER 2023-07-11 08:00 | Inpatient (IN) | payer OTHER ==
[2023-08-25 09:26] VITALS: BMI 36.0
[2023-08-29 06:45] VITALS: BP 132/76; PULSE 84; RESP 20; TEMP 97.4
[2023-08-29] MEDS ORDERED: GENTAMICIN SO4 80 MG/2 ML VIAL ONE (07:00)
[2023-08-29] MEDS ORDERED: BUPIVACAINE HCL/PF 0.5% (5MG/ML) 10 ML VIAL ONE (07:00)
[2023-08-29] MEDS ORDERED: BUPIVACAINE LIPOSOME/PF (EXPAREL) 266 MG/20 ML VIAL ONE (07:00)
[2023-08-29] MEDS ORDERED: THROMBIN (BOVINE) 5,000 UNIT VIAL TP ONE (07:01)
[2023-08-29] MEDS ORDERED: BACITRACIN ZINC 15 GM TUBE TOPICAL OINTMENT ONE (07:01)
[2023-08-29] MEDS ORDERED: LIDOCAINE 1%/EPI 1:100000 (20 ML MULTI DOSE VIAL) ONE (07:17)
[2023-08-29] MEDS: ceFAZolin SODIUM 1 GM VIAL IVPB ONE (07:27)
[2023-08-29] MEDS: LIDOCAINE 1%/EPI 1:100000 (20 ML MULTI DOSE VIAL) IJ ONE (07:28)
[2023-08-29] MEDS: BUPIVACAINE HCL/PF 0.5% (5MG/ML) 10 ML VIAL IJ ONE (07:28)
[2023-08-29] MEDS: THROMBIN (BOVINE) 5,000 UNIT VIAL TP ONE (07:29)
[2023-08-29] MEDS: GENTAMICIN SO4 80 MG/2 ML VIAL IVPB ONE (07:30)
[2023-08-29] MEDS: HYDROGEN PEROXIDE 473 ML PO ONE (07:31)
[2023-08-29] MEDS ORDERED: ROCURONIUM BROMIDE 50 MG/5 ML SYRINGE ONE (07:53)
[2023-08-29] MEDS ORDERED: SUCCINYLCHOLINE CHLORIDE 200 MG/10 ML SYRINGE ONE (07:53)
[2023-08-29] MEDS ORDERED: VANCOMYCIN 1,000 MG VIAL (RESTRICTED TO ID ONLY) ONE (08:03)
== END 2023-08-29 12:45 | disposition home or self-care (01) | DRG 347 ==
LOC: J2C 08-29 03:43
PROVIDERS: ADMIT Neurological Surgery; ATTEND Neurological Surgery
DX: M43.02 Spondylolysis, cervical region (principal); M40.292 Other kyphosis, cervical region; Z53.09 Procedure and treatment not carried out because of other contraindication

== ENCOUNTER 2023-09-07 10:00 | Inpatient (IN) | payer OTHER ==
[2023-09-06 16:38] VITALS: BMI 37.2
[2023-09-08] MEDS ORDERED: ceFAZolin SODIUM 1 GM VIAL ONE ×2 (06:11→09:28)
[2023-09-08] MEDS ORDERED: GENTAMICIN SO4 80 MG/2 ML VIAL ONE ×2 (07:03→10:32)
[2023-09-08] MEDS ORDERED: BACITRACIN ZINC 15 GM TUBE TOPICAL OINTMENT ONE ×2 (07:03→13:21)
[2023-09-08] MEDS ORDERED: THROMBIN (BOVINE) 5,000 UNIT VIAL TP ONE (07:03)
[2023-09-08] MEDS ORDERED: LIDOCAINE 1%/EPI 1:100000 (20 ML MULTI DOSE VIAL) ONE (07:04)
[2023-09-08] MEDS ORDERED: BUPIVACAINE LIPOSOME/PF (EXPAREL) 266 MG/20 ML VIAL ONE (07:04)
[2023-09-08] MEDS: ceFAZolin SODIUM 1 GM VIAL IVPB ONE ×3 (07:26→11:50)
[2023-09-08] MEDS: LIDOCAINE 1%/EPI 1:100000 (20 ML MULTI DOSE VIAL) IJ ONE ×3 (07:27→11:04)
[2023-09-08] MEDS: VANCOMYCIN 1 GM in D5W (PRE-DOCKED) 1,000 MG/250 ML (RESTRICTED TO ID ONLY IVPB ONE ×2 (07:27→08:35)
[2023-09-08] MEDS ORDERED: MIDAZOLAM HCL 2 MG/2 ML SINGLE DOSE VIAL ONE ×2 (07:47→08:28)
[2023-09-08] MEDS ORDERED: FENTANYL CITRATE/PF 50 MCG/ML VIAL ONE ×9 (07:47→14:59)
[2023-09-08] MEDS ORDERED: PROPOFOL 40 ML ONE (07:47)
[2023-09-08] MEDS ORDERED: SUCCINYLCHOLINE CHLORIDE 200 MG/10 ML SYRINGE ONE (07:50)
[2023-09-08] MEDS ORDERED: ROCURONIUM BROMIDE 50 MG/5 ML SYRINGE ONE ×3 (07:50→11:03)
[2023-09-08] MEDS: THROMBIN (BOVINE) 5,000 UNIT VIAL TP ONE ×2 (08:00→09:38)
[2023-09-08] MEDS: HYDROGEN PEROXIDE 473 ML PO ONE ×2 (08:01→09:40)
[2023-09-08] MEDS: GENTAMICIN SO4 80 MG/2 ML VIAL IVPB ONE ×3 (08:01→09:40)
[2023-09-08] MEDS ORDERED: KETAMINE HCL 200 MG/20 ML VIAL ONE (08:54)
[2023-09-08] MEDS ORDERED: TRANEXAMIC ACID 1000 MG/10 ML VIAL ONE ×2 (09:28→11:06)
[2023-09-08] MEDS ORDERED: DEXAMETHASONE SOD PHOSPHATE 4 MG/1 ML VIAL ONE (09:28)
[2023-09-08] MEDS: BUPIVACAINE HCL/PF 0.5% (5 MG/ML) 30 ML VIAL IJ ONE ×2 (11:41→12:17)
[2023-09-08] MEDS: BUPIVACAINE LIPOSOME/PF (EXPAREL) 266 MG/20 ML VIAL NR ONE ×2 (11:41→12:17)
[2023-09-08] MEDS ORDERED: SUGAMMADEX SODIUM 200 MG/2 ML VIAL ONE (12:03)
[2023-09-08] MEDS ORDERED: ONDANSETRON 4 MG/2 ML VIAL ONE (12:03)
[2023-09-08] MEDS ORDERED: PROPOFOL 20 ML ONE (12:50)
[2023-09-08] MEDS: CEFAZOLIN SODIUM 2 GM in DEXTROSE 5%-WATER 100 ML IVPB ONE (13:20)
[2023-09-08] MEDS ORDERED: ONDANSETRON 4 MG/2 ML VIAL IVPUSH PRN ×2 (13:23→13:38)
[2023-09-08] MEDS ORDERED: LACTATED RINGERS SOLUTION 1,000 ML IV SCH (13:30)
[2023-09-08] MEDS ORDERED: ACETAMINOPHEN INJECTION 100 ML IVPB ONE (13:38)
[2023-09-08] MEDS: ACETAMINOPHEN 1000 MG/100 ML BAG IVPB ONE (13:45)
[2023-09-08] MEDS ORDERED: HYDROmorphone *PCA* 10MG/50ML DISP.SYRIN ONE (16:51)
[2023-09-08] MEDS: HYDROmorphone *PCA* 10MG/50ML DISP.SYRIN PCA SCH ×2 (16:55→18:58)
[2023-09-08] MEDS: DOCUSATE SODIUM 100 MG CAPSULE (FP) PO SCH (18:58)
[2023-09-08] MEDS: LACTATED RINGERS SOLUTION 1,000 ML/1,000 ML INFUS.BAG IV SCH (19:10)
[2023-09-08] MEDS: LORazepam 1 MG TABLET PO PRN (21:46)
[2023-09-08] MEDS: ACETAMINOPHEN 1000 MG/100 ML BAG IVPB SCH (21:49)
[2023-09-08] MEDS: CEFAZOLIN 1 GM in DEXTROSE 5%-WATER - 50 ML IVPB SCH (21:50)
[2023-09-08] MEDS: LABETALOL HCL 200 MG TABLET (FP) PO SCH (22:05)
[2023-09-08] MEDS: HEPARIN NA (PORCINE) 5,000 UNITS/ML 1ML VIAL SQ SCH (22:05)
[2023-09-09 08:41] LABS: HEMATOCRIT 34.2 % (35.4-49); MCH 32.1 pg (25.7-33.7); MCHC 35.1 g/dl (32.0-35.9); MEAN CELL VOLUME 91.4 fl (80-96); MEAN PLT VOLUME 6.9 fl (7.5-11.1); PLATELET COUNT 149 10^3/uL (134-434); RBC 3.74 M/mm3 (4.00-5.60); RDW 12.7 % (11.9-15.9); WHITE BLOOD COUNT 7.4 K/mm3 (4.0-10.0)
[2023-09-09 09:01] LABS: POTASSIUM 3.3 mmol/L (3.5-5.1)
[2023-09-09 09:02] LABS: CALCIUM 7.5 mg/dL (8.5-10.1)
[2023-09-09 09:06] LABS: CREATININE 0.7 mg/dL (0.55-1.3)
[2023-09-09] MEDS: THIAMINE HCL 200 MG/2 ML VIAL IVPB SCH (10:31)
[2023-09-09] MEDS: BUPRENORPHINE/NALOXONE 2 MG/0.5 MG FILM PACKET SL SCH (13:02)
[2023-09-09] MEDS: PREGABALIN 25 MG CAPSULE PO SCH (13:41)
[2023-09-09] MEDS: NICOTINE 14 MG/24 HOURS TOPICAL PATCH TD SCH (13:45)
[2023-09-09] MEDS: LORazepam 1 MG TABLET PO PRN (15:17)
[2023-09-09] MEDS: HYDROmorphone *PCA* 10MG/50ML DISP.SYRIN PCA SCH (17:19)
[2023-09-09 18:36] LABS: COCAINE, UR NEGATIVE (NEGATIVE); METHADONE, UR NEGATIVE (NEGATIVE); URINE AMPHETAMINES NEGATIVE (NEGATIVE); URINE BARBITURATES NEGATIVE (NEGATIVE)
[2023-09-09 18:37] LABS: PHENCYCLIDINE,URINE NEGATIVE (NEGATIVE)
[2023-09-09 18:40] LABS: OPIATES, URI POSITIVE (NEGATIVE); URINE BENZODIAZEPINES POSITIVE (NEGATIVE)
[2023-09-09] MEDS: POTASSIUM CHLORIDE ORAL LIQUID 20 MEQ/15 ML PO ONE (21:23)
[2023-09-09] MEDS: BUPRENORPHINE/NALOXONE 8 MG/2 MG FILM PACKET SL SCH (21:26)
[2023-09-09] MEDS ORDERED: BUPRENORPHINE/NALOXONE 2 MG/0.5 MG FILM PACKET SL SCH (22:00)
[2023-09-10] MEDS: ACETAMINOPHEN 325 MG TABLET (FP) PO PRN (08:52)
[2023-09-10] MEDS ORDERED: HYDROmorphone *PCA* 10MG/50ML DISP.SYRIN ONE (08:58)
[2023-09-10] MEDS: POTASSIUM CHLORIDE TABS 10 MEQ TABLET.ER (FP) PO ONE (09:09)
[2023-09-10] MEDS: BUPRENORPHINE/NALOXONE 8 MG/2 MG FILM PACKET SL SCH (09:52)
[2023-09-10] MEDS ORDERED: BUPRENORPHINE/NALOXONE 8 MG/2 MG FILM PACKET SL SCH (10:00)
[2023-09-10 12:05] LABS: HEMATOCRIT 31.1 % (35.4-49); HEMOGLOBIN 11.2 GM/dL (11.7-16.9); MCH 32.6 pg (25.7-33.7); MEAN CELL VOLUME 90.6 fl (80-96); MEAN PLT VOLUME 7.4 fl (7.5-11.1); PLATELET COUNT 120 10^3/uL (134-434); RBC 3.43 M/mm3 (4.00-5.60); RDW 12.6 % (11.9-15.9); WHITE BLOOD COUNT 5.7 K/mm3 (4.0-10.0)
[2023-09-10 12:19] LABS: POTASSIUM 3.8 mmol/L (3.5-5.1)
[2023-09-10 12:22] LABS: BLOOD UREA NITROGEN 8.8 mg/dL (7-18); CALCIUM 8.2 mg/dL (8.5-10.1); MAGNESIUM 1.8 mg/dL (1.8-2.4)
[2023-09-10 12:25] LABS: CREATININE 0.7 mg/dL (0.55-1.3)
[2023-09-10] MEDS: ACETAMINOPHEN 500 MG TABLET (FP) PO ONE (13:49)
[2023-09-10] MEDS: HYDROmorphone *PCA* 10MG/50ML DISP.SYRIN PCA SCH (18:59)
[2023-09-11] MEDS: LORATADINE 10 MG TABLET PO SCH (12:51)
[2023-09-11] MEDS: HYDROmorphone *PCA* 10MG/50ML DISP.SYRIN PCA SCH (17:27)
[2023-09-11] MEDS: ACETAMINOPHEN 325 MG TABLET (FP) PO SCH (17:41)
[2023-09-11] MEDS: KETOROLAC TROMETHAMINE 15 MG/ML VIAL IVPUSH PRN (18:05)
[2023-09-11] MEDS: LORazepam 1 MG TABLET PO ONE (20:40)
[2023-09-11] MEDS: diphenhydrAMINE HCL 25 MG CAPSULE (FP) PO PRN (20:41)
[2023-09-11] MEDS: SODIUM CHLORIDE 1,000 ML IV SCH (20:45)
[2023-09-12] MEDS: LORazepam 1 MG TABLET PO ONE (04:03)
[2023-09-12] MEDS: PREGABALIN 100 MG CAPSULE PO SCH (08:30)
[2023-09-12] MEDS: LORazepam 1 MG TABLET PO PRN ×2 (09:14→13:44)
[2023-09-12] MEDS: METHYLNALTREXONE BROMIDE 8 MG/0.4 ML SYRINGE SQ ONE (09:19)
[2023-09-12] MEDS: HYDROmorphone HCl 2 MG/ML VIAL IVPB ONE (10:24)
[2023-09-12] MEDS: ACETAMINOPHEN 1000 MG/100 ML BAG IVPB ONE (11:33)
[2023-09-12] MEDS ORDERED: LORazepam 2 MG TABLET PO PRN (13:37)
[2023-09-12] MEDS: amLODIPine BESYLATE 5 MG TABLET (FP) PO SCH (14:31)
[2023-09-12] MEDS: KETOROLAC TROMETHAMINE 30 MG/1 ML VIAL IM PRN (21:25)
[2023-09-14] MEDS: BENZONATATE 200 MG CAPSULE PO PRN (18:28)
[2023-09-14] MEDS: guaiFENesin 200 MG/10 ML 10 ML UNIT-DOSE CUPS PO PRN (20:46)
[2023-09-15] MEDS: LORazepam 1 MG TABLET PO PRN (14:08)
[2023-09-15] MEDS ORDERED: PREGABALIN 100 MG CAPSULE PO SCH (19:48)
[2023-09-15] MEDS: PREGABALIN 100 MG CAPSULE PO SCH (21:10)
[2023-09-15] MEDS: BACLOFEN 10 MG TABLET (FP) PO SCH (21:10)
[2023-09-17] MEDS: THIAMINE 100 MG TABLET PO SCH (21:29)
[2023-09-18 08:36] VITALS: TEMP 97.7
[2023-09-18 15:01] VITALS: BP 145/82; PULSE 77; RESP 18
== END 2023-09-18 17:11 | DRG 321 ==
LOC: J2C 09-08 04:17 → J8W 09-08 18:35
PROVIDERS: ADMIT Neurological Surgery; ATTEND Family Medicine
PROC: 0RB30ZZ Excision of Cervical Vertebral Disc, Open Approach (ICD-10-PCS; 2023-09-08)
PROC: 00NW0ZZ Release Cervical Spinal Cord, Open Approach (ICD-10-PCS; 2023-09-08)
PROC: 4A11X4G Monitoring of Peripheral Nervous Electrical Activity, Intraoperative, External Approach (ICD-10-PCS; 2023-09-08)
PROC: 0RG2071 Fusion of 2 or more Cervical Vertebral Joints with Autologous Tissue Substitute, Posterior Approach, Posterior Column, Open Approach (ICD-10-PCS; principal; 2023-09-08 08:00)
PROC: 0RG20A0 Fusion of 2 or more Cervical Vertebral Joints with Interbody Fusion Device, Anterior Approach, Anterior Column, Open Approach (ICD-10-PCS; 2023-09-08 08:00)
DX: M47.12 Other spondylosis with myelopathy, cervical region (principal); F13.20 Sedative, hypnotic or anxiolytic dependence, uncomplicated; M40.292 Other kyphosis, cervical region; I10 Essential (primary) hypertension; F10.230 Alcohol dependence with withdrawal, uncomplicated; F17.200 Nicotine dependence, unspecified, uncomplicated; G89.18 Other acute postprocedural pain; R20.2 Paresthesia of skin; R50.82 Postprocedural fever; Z79.891 Long term (current) use of opiate analgesic
CPT/HCPCS: 36415; 70450-TC; 72125-TC; 76000-TC-FY; 80048; 80307; 83735; 85027; 86850; 86900; 86901; 87635; 94010; 94760; 97116-GP; 97161-GP; C1713; C1889; J0131; J0475; J1644